=== PATIENT | female | born 1960 | race Caucasian/White ===

== ENCOUNTER → 2018-11-29 09:21 | Oncology outpatient (ONC) | payer OTHER, SELFPAY ==
[2018-11-29 09:54] VITALS: BP 139/83; PULSE 83; RESP 18; TEMP 36.3; O2SAT 98
--- NOTE | 2018-11-29 12:51 | P.CONONC_ITS ---
History of Present Illness - Data of Consult Consult date: 11/29/18 Primary Care Provider: Lauren King PA-C - Consult Narrative Narrative: Diagnosis: Lobular cancer of the left breast, ER/GA positive, HER2 negative clinically T1cN0 History of present illness: Isabel Russell is a 58 year old female who is referred for further evaluation of a newly diagnosed breast cancer. The patient reports that she felt a lump in the lateral left breast. It was present about 2-3 months ago. It was not painful or bothering her. She sought medical attention and was referred for a mammogram and ultrasound. These confirmed an abnormality in the lateral left breast that measured approximately 1.3 cm. There was no evidence of adenopathy. ultrasound-guided biopsy confirmed an infiltrating lobular carcinoma that was ER and GA positive and HER2 negative. She is scheduled to meet with a surgeon on Tuesday afternoon. Today, she is somewhat anxious but otherwise feeling well. She has had some chronic neck and shoulder pain which has been stable. She denies any new aches or pains. No fevers chills or sweats. No shortness of breath or cough. Appetite and energy level have been stable. She is otherwise without complaint. Her medications include only hydrochlorothiazide and alprazolam. Her past medical history is notable for high blood pressure and arthritis. She has had spinal stenosis in her neck. She has had wrist surgery for hemangiomas. She had a prior tonsillectomy. She also has a history of a kidney infection. Her family history is notable for a brother with Hodgkin's disease. Her father had kidney and prostate cancer. She believes that there may be some breast cancer mother side of the family although she is not sure of the details. Social history: She is . She is active in [employer]. She quit smoking several years ago. She has very rare alcohol use. CC: Fabian Stringer MD Home Medications and Allergies Home Medications Medication Instructions Recorded Confirmed Type ALPRAZOLAM 0.5 mg PO PRN #0 07/16/10 11/29/18 History hydrochlorothiazide 25 mg PO DAILY 11/29/18 11/29/18 History Allergies Allergy/AdvReac Type Severity Reaction Status Date / Time lisinopril Allergy Severe COUGH/THROAT Unverified 11/23/17 13:03 TIGHTENING Penicillins Allergy Mild Unverified 11/23/17 13:03 Sulfa (Sulfonamide Allergy Mild Unverified 11/23/17 13:03 Antibiotics) morphine Allergy Unknown Unverified 11/23/17 13:03 tetanus toxoid, adsorbed Allergy Unknown Unverified 11/23/17 13:03 adhesive tape AdvReac Severe Hives Verified 11/29/18 10:04 topiramate AdvReac Severe SUICIDAL Unverified 11/23/17 13:03 codeine AdvReac Intermediate PSYCHOTIC Unverified 11/23/17 13:03 erythromycin base AdvReac Intermediate ABD PAIN, Unverified 11/23/17 13:03 DIARRHEA nadolol AdvReac Mild BRADYCARDIA Unverified 11/23/17 13:03 nortriptyline AdvReac Mild TACHYCARDIA Unverified 11/23/17 13:03 adhesive AdvReac Hives Verified 11/29/18 10:04 Review of Systems - Patient Self-Reported Symptoms SR Constitution: Weight loss/gain SR ears, nose, mouth, throat issues: Ears ringing SR respiratory issues: Mucous SR Cardiovascular issues: Dizzy/lightheaded SR Skin issues: Skin rash or itching, Nail changes SR Genitourinary issues: Frequent urination SR Musculoskeletal issues: Muscle weakness, Back or neck pain SR Neuro issues: Headache, Lightheaded/dizzy, Difficulty balancing Constitutional: normal activity level Respiratory: no shortness of breath, no cough Musculoskeletal: pain Integumentary (breast): lumps Exam Vital signs: Vital Signs Temp Pulse Resp BP Pulse Ox 11/29/18 09:54 97.4 F L 83 18 139/83 98 Intake and Output 11/28/18 11/29/18 11/29/18 23:59 07:59 15:59 Other: Weight 76.8 kg Patient Weight 11/29/18 23:59 Weight 76.8 kg - Constitutional positive no acute distress, positive average body habitus - Routine HEENT Exam Head: Present: normocephalic, atraumatic Eye: Present: EOMI, PERRL. Absent: conjunctival icterus, scleral injection ENT: Present: mucous membranes moist, oropharynx clear - Routine Neck Exam Present: supple. Absent: lymphadenopathy, thyromegaly - Routine Chest/Breast/Axilla Exam Comments: She has some ecchymosis over the lateral left breast and a healing biopsy site. There is a small nodule in that area. I am unsure if it is the mass or hematoma. I do not feel any axillary adenopathy. I do not feel any other suspicious masses. - Routine Respiratory Exam Present: Clear to auscultation bilaterally. Absent: rales, wheezes - Routine Cardiovascular Exam Present: RRR, S1, S2. Absent: murmur - Routine Abdominal Exam Present: soft, normoactive bowel sounds. Absent: tenderness, organomegaly, mass - Routine Extremities Exam Absent: cyanosis, clubbing, edema - Routine Back/Spine Exam Back/Spine: Absent: paraspinal tenderness, vertebral tenderness - Routine Skin Exam Present: intact. Absent: petechiae, rash - Routine Neurological Exam Present: alert, oriented X3 - Routine Psychiatric Exam Present: normal affect, normal thought process Assessment and Plan (1) Breast cancer Current visit: Yes Status: Acute 58-year-old woman with a new diagnosis of lobular breast cancer. Clinically, it appears to be stage I. She does not have any symptoms to suggest distant metastasis. I explained that the mainstay of treatment was surgical. This could include lumpectomy followed by radiation or mastectomy with equivalent long-term outcome. Given the small size of her cancer and lobular pathology, I doubt that there will be any role for chemotherapy although she would benefit from hormone therapy. If she were found to have lymph node involvement or for tumor was larger than suspected, then we may need to reconsider chemotherapy. We did discuss the role of hormone therapy in reducing both local and distant recurrence as well as development of 2nd primaries. We talked about side effects of aromatase inhibitor including hot flashes, irritability and mood changes, risk for osteoporosis and risk for musculoskeletal complications. We talked briefly about tamoxifen and its side effects including the risk for thrombosis and abnormal uterine bleeding. The patient will meet with the surgeon later this week. She will return to clinic here in about 6 weeks for follow-up. Hopefully by that time she will have completed her surgical treatment and be recovering.
--- NOTE | 2018-12-05 11:45 | ONC.SCHED ---
Patient going to [facility] for [facility] opinion. [facility] record request send to Medical Records
--- NOTE | 2018-12-21 08:20 | ONC.SCHED ---
Per phone message from patient today, transferring care to [facility]
== END ==
PROVIDERS: Family Provider Physician Assistant; PCP Physician Assistant
DX: C50.912 Malignant neoplasm of unspecified site of left female breast (principal); I10 Essential (primary) hypertension; Z17.0 Estrogen receptor positive status [ER+]; Z87.891 Personal history of nicotine dependence
CPT/HCPCS: 99204; 99214

== ENCOUNTER → 2018-12-15 11:07 | Outpatient (CLI) | payer OTHER, SELFPAY ==
--- NOTE | 2018-12-15 | DI.US.S_ITS ---
PROCEDURE: US PELVIC COMPLETE INDICATIONS: POSTMENOPAUSAL BLEEDING TECHNIQUE: Real-time scanning was performed of the pelvic organs, with image documentation. Additional endovaginal scanning was necessary due to incomplete visualization of the adnexal and endometrial structures by transabdominal scanning. COMPARISON: [facility], , PELVIC COMPLETE, 09/01/2015, 14:19. FINDINGS: Transabdominal scanning: Limited scanning through the kidneys shows no hydronephrosis. No pathologic free abdominal or pelvic fluid. Endovaginal scanning: Uterus: Uterus is normal in size at 7.2 x 3.2 x 4.8 cm. The endometrium measures 1.2 mm in combined thickness. 1.5 x 1.0 1.1 cm posterior intramural fibroid. Ovaries: Ovaries are normal bilaterally measuring 1.8 x 0.9 x 1.1 cm on the right and 2.3 x 1.3 x 1.4 cm on the left. IMPRESSION: 15 mm intramural fibroid. Dictated by: Wilton NICHOLSON Interpreted: Casi Yung MD on 12/15/2018 at 15:56 Approved by: Casi Yung M.D. on 12/18/2018 at 17:31
== END ==
PROVIDERS: Family Provider Physician Assistant; PCP Physician Assistant; Visit Provider Physician Assistant
DX: N95.0 Postmenopausal bleeding (principal); D25.1 Intramural leiomyoma of uterus
CPT/HCPCS: 76830; 76856

== ENCOUNTER 2021-11-27 11:15 | Outpatient (RCR) | payer OTHER, SELFPAY ==
--- NOTE | 2021-05-07 15:59 | PT.OIE ---
Current Diagnoses Benign paroxysmal vertigo, bilateral (05/07/21) Dizziness and giddiness (05/07/21) Visit Care Team Role Provider Type Lauren King PA-C Attending Provider Non-Staff Primary Care Provider Referring Provider Specialty: Internal Medicine Address: [address] [place] [address], [id number] Email: Physical Therapy Initial Evaluation PT-OP-A Visit Information Start: 05/07/21 15:36 Freq: Status: Active Protocol: Document 05/07/21 12:00 DCW (Rec: 05/07/21 15:58 [facility] [id number]) Out-Patient Physical Therapy Visit Information Visit Information Visit Type Initial Evaluation Visit Start Time 12:00 Visit Stop Time 12:50 Total Visit Minutes 50 Visit Number 1 Number of INSIDE TRUCKER Visits 0 Evaluation Information Evaluation Date 05/07/21 PT-OP-B Current Condition Start: 05/07/21 15:36 Freq: Status: Active Protocol: Document 05/07/21 12:00 DCW (Rec: 05/07/21 15:58 DC [id number]) Current Condition History of Current Condition Onset Date 04/25/21 Current Complaints Position-dependent vertigo History of Current Condition Pt is a 61 year old female complaining of a two week history of motion-induced vertigo. Pt reports episodes last a minute or two. Symptoms are provoked by bending down, looking down and to the side, looking up, and changing positions in bed. Pt does repot a few instances when she thinks she was simply standing and got an overwhelming sensation like she was shoved to the side, and ended up falling against the wall. Pt reports symptoms are not waxing/waning in nature. Pt does have a current history of left breast cancer , for which she has recently undergone treatment. Admits to fairly significant stress levels recently, between her cancer treatment, her grandson being born 8 weeks early, and her same grandson undergoing open heart surgery just last week. Prior Treatments and Tests Pt has a history of an as yet undetermined balance disorder which she was seen at this clinic for a number of years ago. Pt was doing well enough that she could function, was having tests run to figure out what was happening, and admits she finally just said that's enough, no one knows what's happening, so I'm just not going to worry about it and live my life. Treatment Goals Patient/Caregiver Goals Stop dizziness/falls Personal Factors Other Personal Factors That May Effect Breast cancer, Hx unknown Therapy/Recovery balance disorder PT-OP-C Subjective Start: 05/07/21 15:36 Freq: Status: Active Protocol: Document 05/07/21 12:00 DCW (Rec: 05/07/21 15:58 [facility] [id number]) OP-PT Subjective Patient Comments Patient Comments I'm normally fine when I'm standing, but I'm still afraid to drive. What happens if I get really dizzy when I'm driving? Patient Questionnaires Dizziness Handicap Inventory DHI Score 46% DHI Functional Impairment 40 to 59% Impaired (Score 40- 59) PT-OP-O Vestibular Start: 05/07/21 15:36 Freq: Status: Active Protocol: Document 05/07/21 12:00 DCW (Rec: 05/07/21 15:58 [facility] [id number]) Vestibular Assessment Screening Tests Vestibular Artery Screen Negative Auditory Tests Montalvo Test Within normal limits Rinne Test Negative Air Conduction Results Equal Visual Testing Smooth Pursuits Horizontal WNL Smooth Pursuits Vertical WNL Saccades Horizontal WNL Saccades Vertical WNL Gaze Evoked Nystagmus With Fixation Negative Gaze Evoked Nystagmus Without Fixation Negative Positional Testing Loren-Hallpike Positive Left,Negative Right, Upbeating,> 60 Seconds PT-OP-Q Treatments Start: 05/07/21 15:36 Freq: Status: Active Protocol: Document 05/07/21 12:00 DCW (Rec: 05/07/21 15:58 [facility] [id number]) Canalithic Repositioning BPPV Treatment Semont Affected Canal(s) L Posterior? Reps x1 Rodrigo Affected Canal(s) L Posterior? Reps x1 Comments Modified Rodrigo PT-OP-T Assessment and Plan Start: 05/07/21 15:36 Freq: Status: Active Protocol: Document 05/07/21 12:00 DCW (Rec: 05/07/21 15:58 [facility] [id number]) Physical Therapy Assessment Rehab Potential Rehabilitation Potential Good Evaluation Complexity Number of Personal Factors/Comorbidities 3 or More Number of Body Systems Impaired 3 Clinical Presentation at Evaluation Unstable Impairments Impairments Balance,Functional Activities, Functional Mobility,Vestibular Assessment Summary Assessment During left Chapman-Hallpike test, pt complained of vertigo and demonstrated torsional nystagmus lasting 60+ seconds, which may be consistent with diagnosis of left-sided posterior canal BPPV, cupulolithiasis-type. Very difficult to see if there was subtle upbeating, or if pt was actually demonstrating pure torsional nystagmus, which may be a sign of a central cause. Pt had no other central symptoms, and otherwise responded as expected to treatment. A modified Rodrigo was performed, just because she was already in position, however upon retesting, she continued to have sustained nystagmus, and a left semont/ libertory maneuver was performed. Pt noted almost immediate improvement in symptoms. Pt should be seen for a follow-up within the next week. If pt responded appropriately to canalith repositioning, she will likely be appropriate for discharge. If symptoms persist, further testing may be required, and, due to pt's current health history, may require further screening for potential central cause. Pt was educated on BPPV, expectations for treatment, and post-Rodrigo restrictions. Pt to return in ~1 week for a follow-up appointment, and intermittently afterward as indicated for treatment of BPPV. Physical Therapy Plan Frequency and Duration Frequency of Treatment 2x/Week Duration of Treatment One month Plan of Care Start Date 05/07/21 Plan of Care End Date 06/06/21 Therapeutic Interventions Therapeutic Interventions Balance Training,Canalithic Repositioning,Manual Therapy, Neuromuscular Re-education, Therapeutic Activities, Therapeutic Exercises, Vestibular Rehabilitation Next Visit Focus/Plan Next Note Type Treatment Note Next Visit Plan Positional testing, CRM as indicated, vestibular testing
--- NOTE | 2021-05-07 16:00 | PT.OPPOC ---
Physical, Occupational & Speech Therapy At [facility] Current Diagnoses Benign paroxysmal vertigo, bilateral (05/07/21) Dizziness and giddiness (05/07/21) Visit Care Team Role Provider Type Lauren King PA-C Attending Provider Non-Staff Primary Care Provider Referring Provider Specialty: Internal Medicine Address: [address] [place] [address], [id number] Email: Plan Of Care PT-OP-T Assessment and Plan Start: 05/07/21 15:36 Freq: Status: Active Protocol: Document 05/07/21 12:00 DCW (Rec: 05/07/21 15:58 DCW [id number]) Physical Therapy Assessment Rehab Potential Rehabilitation Potential Good Evaluation Complexity Number of Personal Factors/Comorbidities 3 or More Number of Body Systems Impaired 3 Clinical Presentation at Evaluation Unstable Impairments Impairments Balance,Functional Activities, Functional Mobility,Vestibular Assessment Summary Assessment During left Loren-Hallpike test, pt complained of vertigo and demonstrated torsional nystagmus lasting 60+ seconds, which may be consistent with diagnosis of left-sided posterior canal BPPV, cupulolithiasis-type. Very difficult to see if there was subtle upbeating, or if pt was actually demonstrating pure torsional nystagmus, which may be a sign of a central cause. Pt had no other central symptoms, and otherwise responded as expected to treatment. A modified Rodrigo was performed, just because she was already in position, however upon retesting, she continued to have sustained nystagmus, and a left semont/ libertory maneuver was performed. Pt noted almost immediate improvement in symptoms. Pt should be seen for a follow-up within the next week. If pt responded appropriately to canalith repositioning, she will likely be appropriate for discharge. If symptoms persist, further testing may be required, and, due to pt's current health history, may require further screening for potential central cause. Pt was educated on BPPV, expectations for treatment, and post-Rodrigo restrictions. Pt to return in ~1 week for a follow-up appointment, and intermittently afterward as indicated for treatment of BPPV. Physical Therapy Plan Frequency and Duration Frequency of Treatment 2x/Week Duration of Treatment One month Plan of Care Start Date 05/07/21 Plan of Care End Date 06/06/21 Therapeutic Interventions Therapeutic Interventions Balance Training,Canalithic Repositioning,Manual Therapy, Neuromuscular Re-education, Therapeutic Activities, Therapeutic Exercises, Vestibular Rehabilitation Next Visit Focus/Plan Next Note Type Treatment Note Next Visit Plan Positional testing, CRM as indicated, vestibular testing Plan of Care Dates Plan of Care Start Date 05/07/21 Plan of Care End Date 06/06/21 Electronically Signed by: Gabe Wadsworth, PT 05/07/21 1600 Please Sign and Return: I have reviewed this Plan of Care and certify that the skilled therapy services above are required to meet the patient?s needs. Physician Signature Date Printed Name and Credentials Clinical Instructor Signature Printed Name and Credentials
--- NOTE | 2021-05-14 16:02 | PT.OTN ---
Current Diagnoses Benign paroxysmal vertigo, bilateral (05/14/21) Dizziness and giddiness (05/14/21) Physical Therapy Treatment Note PT-OP-A Visit Information Start: 05/07/21 15:36 Freq: Status: Active Protocol: Document 05/14/21 15:18 DCW (Rec: 05/14/21 16:02 DCW [id number]) Out-Patient Physical Therapy Visit Information Visit Information Visit Type Treatment Note Visit Start Time 15:15 Visit Stop Time 16:00 Total Visit Minutes 45 Visit Number 2 Number of RIDING SILKS CUSTODIAN Visits 0 Evaluation Information Evaluation Date 05/07/21 PT-OP-B Current Condition Start: 05/07/21 15:36 Freq: Status: Active Protocol: Document 05/07/21 12:00 DCW (Rec: 05/07/21 15:58 DCW [id number]) Current Condition History of Current Condition Onset Date 04/25/21 Current Complaints Position-dependent vertigo History of Current Condition Pt is a 61 year old female complaining of a two week history of motion-induced vertigo. Pt reports episodes last a minute or two. Symptoms are provoked by bending down, looking down and to the side, looking up, and changing positions in bed. Pt does repot a few instances when she thinks she was simply standing and got an overwhelming sensation like she was shoved to the side, and ended up falling against the wall. Pt reports symptoms are not waxing/waning in nature. Pt does have a current history of left breast cancer , for which she has recently undergone treatment. Admits to fairly significant stress levels recently, between her cancer treatment, her grandson being born 8 weeks early, and her same grandson undergoing open heart surgery just last week. Prior Treatments and Tests Pt has a history of an as yet undetermined balance disorder which she was seen at this clinic for a number of years ago. Pt was doing well enough that she could function, was having tests run to figure out what was happening, and admits she finally just said that's enough, no one knows what's happening, so I'm just not going to worry about it and live my life. Treatment Goals Patient/Caregiver Goals Stop dizziness/falls Personal Factors Other Personal Factors That May Effect Breast cancer, Hx unknown Therapy/Recovery balance disorder PT-OP-C Subjective Start: 05/07/21 15:36 Freq: Status: Active Protocol: Document 05/14/21 15:18 DCW (Rec: 05/14/21 16:01 DCW [id number]) OP-PT Subjective Patient Comments Patient Comments Pt reports she was doing better for a few days, but then is now symptomatic again when standing up after bending over to interact with her dog or turning too quickly in the kitchen. PT-OP-O Vestibular Start: 05/07/21 15:36 Freq: Status: Active Protocol: Document 05/14/21 15:18 DCW (Rec: 05/14/21 16:01 DCW [id number]) Vestibular Assessment Positional Testing Davenport-Hallpike Positive Left,Negative Right, Upbeating,> 60 Seconds PT-OP-Q Treatments Start: 05/07/21 15:36 Freq: Status: Active Protocol: Document 05/14/21 15:18 DCW (Rec: 05/14/21 16:01 DCW [id number]) Canalithic Repositioning BPPV Treatment Semont Affected Canal(s) L Posterior? Reps x2 PT-OP-T Assessment and Plan Start: 05/07/21 15:36 Freq: Status: Active Protocol: Document 05/14/21 15:18 DCW (Rec: 05/14/21 16:01 DCW [id number]) Physical Therapy Assessment Impairments Impairments Balance,Functional Activities, Functional Mobility,Vestibular Assessment Summary Assessment Pt's symptoms similar today, sustained nystagmus in left Loren-Hallpike position, still very difficult to determine if there is a vertical component to her nystagmus, or pure torsional. Pt discussed today fears regarding potential of brain mets, which can present with unusual nystagmus. Physical Therapy Plan Frequency and Duration Frequency of Treatment 2x/Week Duration of Treatment One month Plan of Care Start Date 05/07/21 Plan of Care End Date 06/06/21 Therapeutic Interventions Therapeutic Interventions Balance Training,Canalithic Repositioning,Manual Therapy, Neuromuscular Re-education, Therapeutic Activities, Therapeutic Exercises, Vestibular Rehabilitation Next Visit Focus/Plan Next Note Type Treatment Note Next Visit Plan Positional testing, CRM as indicated, vestibular testing
--- NOTE | 2021-05-29 12:48 | PT.OTN ---
Current Diagnoses Benign paroxysmal vertigo, bilateral (05/29/21) Dizziness and giddiness (05/29/21) Physical Therapy Treatment Note PT-OP-A Visit Information Start: 05/07/21 15:36 Freq: Status: Active Protocol: Document 05/29/21 12:02 DCW (Rec: 05/29/21 12:48 DCW [id number]) Out-Patient Physical Therapy Visit Information Visit Information Visit Type Treatment Note Visit Start Time 12:02 Visit Stop Time 12:45 Total Visit Minutes 43 Visit Number 3 Number of GUM MIXER Visits 0 Evaluation Information Evaluation Date 05/07/21 PT-OP-B Current Condition Start: 05/07/21 15:36 Freq: Status: Active Protocol: Document 05/07/21 12:00 DCW (Rec: 05/07/21 15:58 DCW [id number]) Current Condition History of Current Condition Onset Date 04/25/21 Current Complaints Position-dependent vertigo History of Current Condition Pt is a 61 year old female complaining of a two week history of motion-induced vertigo. Pt reports episodes last a minute or two. Symptoms are provoked by bending down, looking down and to the side, looking up, and changing positions in bed. Pt does repot a few instances when she thinks she was simply standing and got an overwhelming sensation like she was shoved to the side, and ended up falling against the wall. Pt reports symptoms are not waxing/waning in nature. Pt does have a current history of left breast cancer , for which she has recently undergone treatment. Admits to fairly significant stress levels recently, between her cancer treatment, her grandson being born 8 weeks early, and her same grandson undergoing open heart surgery just last week. Prior Treatments and Tests Pt has a history of an as yet undetermined balance disorder which she was seen at this clinic for a number of years ago. Pt was doing well enough that she could function, was having tests run to figure out what was happening, and admits she finally just said that's enough, no one knows what's happening, so I'm just not going to worry about it and live my life. Treatment Goals Patient/Caregiver Goals Stop dizziness/falls Personal Factors Other Personal Factors That May Effect Breast cancer, Hx unknown Therapy/Recovery balance disorder PT-OP-C Subjective Start: 05/07/21 15:36 Freq: Status: Active Protocol: Document 05/29/21 12:02 DCW (Rec: 05/29/21 12:47 DCW [id number]) OP-PT Subjective Patient Comments Patient Comments For a week or so it was really good, and I saw my chiropractor twice in that time, and he reset my C1 on both sides, so that may have helped, but last night after I got home, I was sitting on the couch and just got real woozy, and it passed, but just all night it seemed to come and go. PT-OP-O Vestibular Start: 05/07/21 15:36 Freq: Status: Active Protocol: Document 05/29/21 12:02 DCW (Rec: 05/29/21 12:47 DCW [id number]) Vestibular Assessment Positional Testing [place]-Hallpike Positive Left,Negative Right, Upbeating,> 60 Seconds PT-OP-Q Treatments Start: 05/07/21 15:36 Freq: Status: Active Protocol: Document 05/29/21 12:02 DCW (Rec: 05/29/21 12:47 DCW [id number]) Manual Therapy Treatment Soft Tissue Mobilization 1 Body Location B Upper Trap Mobilization Type Strumming,Sustained Pressure Intensity/Depth Moderate Body Position Supine Other Other Manual Treatments Positional testing Canalithic Repositioning BPPV Treatment Rodrigo Affected Canal(s) L Posterior? Reps x1 Comments Modified Rodrigo PT-OP-T Assessment and Plan Start: 05/07/21 15:36 Freq: Status: Active Protocol: Document 05/29/21 12:02 DCW (Rec: 05/29/21 12:47 DCW [id number]) Physical Therapy Assessment Impairments Impairments Balance,Functional Activities, Functional Mobility,Vestibular Assessment Summary Assessment Pt still presenting with atypical sustained nystagmus on the left, although does appear to be less severe today . Started to include some cervical STM to assess improvement, may be sign of cervicogenic vertigo. Physical Therapy Plan Frequency and Duration Frequency of Treatment 2x/Week Duration of Treatment One month Plan of Care Start Date 05/07/21 Plan of Care End Date 06/06/21 Therapeutic Interventions Therapeutic Interventions Balance Training,Canalithic Repositioning,Manual Therapy, Neuromuscular Re-education, Therapeutic Activities, Therapeutic Exercises, Vestibular Rehabilitation Next Visit Focus/Plan Next Note Type Treatment Note Next Visit Plan Positional testing, CRM as indicated, vestibular testing
--- NOTE | 2021-06-05 12:02 | PT.OTN ---
Current Diagnoses Benign paroxysmal vertigo, bilateral (06/05/21) Dizziness and giddiness (06/05/21) Physical Therapy Treatment Note PT-OP-A Visit Information Start: 05/07/21 15:36 Freq: Status: Active Protocol: Document 06/05/21 11:15 DCW (Rec: 06/05/21 12:01 DCW [id number]) Out-Patient Physical Therapy Visit Information Visit Information Visit Type Treatment Note Visit Start Time 11:15 Visit Stop Time 12:00 Total Visit Minutes 45 Visit Number 4 Number of GRINDING AND SPRAYING SUPERVISOR Visits 0 Evaluation Information Evaluation Date 05/07/21 PT-OP-B Current Condition Start: 05/07/21 15:36 Freq: Status: Active Protocol: Document 05/07/21 12:00 DCW (Rec: 05/07/21 15:58 DCW [id number]) Current Condition History of Current Condition Onset Date 04/25/21 Current Complaints Position-dependent vertigo History of Current Condition Pt is a 61 year old female complaining of a two week history of motion-induced vertigo. Pt reports episodes last a minute or two. Symptoms are provoked by bending down, looking down and to the side, looking up, and changing positions in bed. Pt does repot a few instances when she thinks she was simply standing and got an overwhelming sensation like she was shoved to the side, and ended up falling against the wall. Pt reports symptoms are not waxing/waning in nature. Pt does have a current history of left breast cancer , for which she has recently undergone treatment. Admits to fairly significant stress levels recently, between her cancer treatment, her grandson being born 8 weeks early, and her same grandson undergoing open heart surgery just last week. Prior Treatments and Tests Pt has a history of an as yet undetermined balance disorder which she was seen at this clinic for a number of years ago. Pt was doing well enough that she could function, was having tests run to figure out what was happening, and admits she finally just said that's enough, no one knows what's happening, so I'm just not going to worry about it and live my life. Treatment Goals Patient/Caregiver Goals Stop dizziness/falls Personal Factors Other Personal Factors That May Effect Breast cancer, Hx unknown Therapy/Recovery balance disorder PT-OP-C Subjective Start: 05/07/21 15:36 Freq: Status: Active Protocol: Document 06/05/21 11:15 DCW (Rec: 06/05/21 12:01 DCW [id number]) OP-PT Subjective Patient Comments Patient Comments More of the same, maybe a little better. I have stretches where it feels pretty good, and then occasionally days where I'm more symptomatic. I am noticing that my neck pain does seem to be associated with how back my symptoms are. PT-OP-O Vestibular Start: 05/07/21 15:36 Freq: Status: Active Protocol: Document 05/29/21 12:02 DCW (Rec: 05/29/21 12:47 DCW [id number]) Vestibular Assessment Positional Testing [place]-Hallpike Positive Left,Negative Right, Upbeating,> 60 Seconds PT-OP-Q Treatments Start: 05/07/21 15:36 Freq: Status: Active Protocol: Document 06/05/21 11:15 DCW (Rec: 06/05/21 12:01 DCW [id number]) Manual Therapy Treatment Soft Tissue Mobilization 1 Body Location B Upper Trap, scalenes, SCM, suboccipitals Mobilization Type Strumming,Sustained Pressure Intensity/Depth Moderate Body Position Supine PT-OP-T Assessment and Plan Start: 05/07/21 15:36 Freq: Status: Active Protocol: Document 06/05/21 11:15 DCW (Rec: 06/05/21 12:01 DCW [id number]) Physical Therapy Assessment Impairments Impairments Balance,Functional Activities, Functional Mobility,Vestibular Assessment Summary Assessment Focus on STM to cervical spine today to determine if symptoms are related to cervicogenic dizziness, pt instructed to track symptoms after today's visit. Physical Therapy Plan Frequency and Duration Frequency of Treatment 2x/Week Duration of Treatment One month Plan of Care Start Date 05/07/21 Plan of Care End Date 06/06/21 Therapeutic Interventions Therapeutic Interventions Balance Training,Canalithic Repositioning,Manual Therapy, Neuromuscular Re-education, Therapeutic Activities, Therapeutic Exercises, Vestibular Rehabilitation Next Visit Focus/Plan Next Note Type Treatment Note Next Visit Plan Positional testing, CRM as indicated, vestibular testing
--- NOTE | 2021-06-12 12:49 | PT.OTN ---
Current Diagnoses Benign paroxysmal vertigo, bilateral (06/12/21) Dizziness and giddiness (06/12/21) Physical Therapy Treatment Note PT-OP-A Visit Information Start: 05/07/21 15:36 Freq: Status: Active Protocol: Document 06/12/21 11:15 DCW (Rec: 06/12/21 12:03 DCW [id number]) Out-Patient Physical Therapy Visit Information Visit Information Visit Type Treatment Note Visit Start Time 11:15 Visit Stop Time 12:00 Total Visit Minutes 45 Visit Number 5 Number of PRODUCTION TECH Visits 0 Evaluation Information Evaluation Date 05/07/21 PT-OP-B Current Condition Start: 05/07/21 15:36 Freq: Status: Active Protocol: Document 05/07/21 12:00 DCW (Rec: 05/07/21 15:58 DCW [id number]) Current Condition History of Current Condition Onset Date 04/25/21 Current Complaints Position-dependent vertigo History of Current Condition Pt is a 61 year old female complaining of a two week history of motion-induced vertigo. Pt reports episodes last a minute or two. Symptoms are provoked by bending down, looking down and to the side, looking up, and changing positions in bed. Pt does repot a few instances when she thinks she was simply standing and got an overwhelming sensation like she was shoved to the side, and ended up falling against the wall. Pt reports symptoms are not waxing/waning in nature. Pt does have a current history of left breast cancer , for which she has recently undergone treatment. Admits to fairly significant stress levels recently, between her cancer treatment, her grandson being born 8 weeks early, and her same grandson undergoing open heart surgery just last week. Prior Treatments and Tests Pt has a history of an as yet undetermined balance disorder which she was seen at this clinic for a number of years ago. Pt was doing well enough that she could function, was having tests run to figure out what was happening, and admits she finally just said that's enough, no one knows what's happening, so I'm just not going to worry about it and live my life. Treatment Goals Patient/Caregiver Goals Stop dizziness/falls Personal Factors Other Personal Factors That May Effect Breast cancer, Hx unknown Therapy/Recovery balance disorder PT-OP-C Subjective Start: 05/07/21 15:36 Freq: Status: Active Protocol: Document 06/12/21 11:15 DCW (Rec: 06/12/21 12:03 DCW [id number]) OP-PT Subjective Patient Comments Patient Comments Admits she feels a little off today following an infusion yesterday. Notes she has noticed a marked improvement since starting to focus on her cervical muscles. PT-OP-F Manual Assessment Start: 06/12/21 12:47 Freq: Status: Active Protocol: Document 06/12/21 11:15 DCW (Rec: 06/12/21 12:48 DCW [id number]) Manual Assessments Soft Tissue Assessment Soft Tissue Mobility Assessment Moderate tone with tenderness to palpation 3/4: wincing and withdraw along upper trap, cervical paraspinals, and scalenes, R>L. PT-OP-O Vestibular Start: 05/07/21 15:36 Freq: Status: Active Protocol: Document 06/12/21 11:15 DCW (Rec: 06/12/21 12:48 DCW [id number]) Vestibular Assessment Positional Testing [place]-Hallpike Positive Left,Negative Right, Upbeating,> 60 Seconds PT-OP-Q Treatments Start: 05/07/21 15:36 Freq: Status: Active Protocol: Document 06/12/21 11:15 DCW (Rec: 06/12/21 12:03 DCW [id number]) Manual Therapy Treatment Soft Tissue Mobilization 1 Body Location B Upper Trap, scalenes, SCM, suboccipitals Mobilization Type Strumming,Sustained Pressure Intensity/Depth Moderate Body Position Supine PT-OP-T Assessment and Plan Start: 05/07/21 15:36 Freq: Status: Active Protocol: Document 06/12/21 11:15 DCW (Rec: 06/12/21 12:03 DCW [id number]) Physical Therapy Assessment Impairments Impairments Balance,Functional Activities, Functional Mobility,Vestibular Goals Two Impairment Moderate R-sided cervical tone restricts ROM Corporate Administrative Assistant Goal (LTG) Pt to improve cervical ROM to normal levels to decrease symptoms of cervicogenic dizziness. LTG Duration 08/12/21 One Impairment Pt does not have an appropriate home exercise program Short Term Goal (STG) Pt to be independent and compliant with an appropriate HEP STG Duration 07/13/21 Assessment Summary Assessment Continues to show improvement with tone levels and mobility. Noting improvement with symptoms with recent focus on cervical ROM. Continued PT to focus on cervical pain and ROM in effort to decrease vertiginous symptoms. Physical Therapy Plan Frequency and Duration Frequency of Treatment 2x/Week Duration of Treatment Two month Plan of Care Start Date 06/12/21 Plan of Care End Date 08/12/21 Therapeutic Interventions Therapeutic Interventions Balance Training,Canalithic Repositioning,Manual Therapy, Neuromuscular Re-education, Therapeutic Activities, Therapeutic Exercises, Vestibular Rehabilitation Next Visit Focus/Plan Next Note Type Treatment Note Next Visit Plan Positional testing, CRM as indicated, vestibular testing
--- NOTE | 2021-06-12 12:49 | PT.OPPOC ---
Physical, Occupational & Speech Therapy At [facility] Current Diagnoses Benign paroxysmal vertigo, bilateral (06/12/21) Dizziness and giddiness (06/12/21) Visit Care Team Role Provider Type Lauren King PA-C Attending Provider Non-Staff Primary Care Provider Referring Provider Specialty: Internal Medicine Address: [address] [place] [address], [place], [address] Email: Plan Of Care PT-OP-T Assessment and Plan Start: 05/07/21 15:36 Freq: Status: Active Protocol: Document 06/12/21 11:15 DCW (Rec: 06/12/21 12:03 DCW [id number]) Physical Therapy Assessment Impairments Impairments Balance,Functional Activities, Functional Mobility,Vestibular Goals Two Impairment Moderate R-sided cervical tone restricts ROM Mailing Machine Operator Goal (LTG) Pt to improve cervical ROM to normal levels to decrease symptoms of cervicogenic dizziness. LTG Duration 08/12/21 One Impairment Pt does not have an appropriate home exercise program Short Term Goal (STG) Pt to be independent and compliant with an appropriate HEP STG Duration 07/13/21 Assessment Summary Assessment Continues to show improvement with tone levels and mobility. Noting improvement with symptoms with recent focus on cervical ROM. Continued PT to focus on cervical pain and ROM in effort to decrease vertiginous symptoms. Physical Therapy Plan Frequency and Duration Frequency of Treatment 2x/Week Duration of Treatment Two month Plan of Care Start Date 06/12/21 Plan of Care End Date 08/12/21 Therapeutic Interventions Therapeutic Interventions Balance Training,Canalithic Repositioning,Manual Therapy, Neuromuscular Re-education, Therapeutic Activities, Therapeutic Exercises, Vestibular Rehabilitation Next Visit Focus/Plan Next Note Type Treatment Note Next Visit Plan Positional testing, CRM as indicated, vestibular testing Plan of Care Dates Plan of Care Start Date 06/12/21 Plan of Care End Date 08/12/21 Electronically Signed by: Gabe Wadsworth, PT 06/12/21 [id number] Please Sign and Return: I have reviewed this Plan of Care and certify that the skilled therapy services above are required to meet the patient?s needs. Physician Signature Date Printed Name and Credentials Clinical Instructor Signature Printed Name and Credentials
--- NOTE | 2021-06-26 16:48 | PT.OTN ---
Current Diagnoses Benign paroxysmal vertigo, bilateral (06/26/21) Physical Therapy Treatment Note PT-OP-A Visit Information Start: 05/07/21 15:36 Freq: Status: Active Protocol: Document 06/26/21 16:00 DCW (Rec: 06/26/21 16:46 DCW [id number]) Out-Patient Physical Therapy Visit Information Visit Information Visit Type Treatment Note Visit Start Time 16:00 Visit Stop Time 16:45 Total Visit Minutes 45 Visit Number 6 Number of MEDICAL AUDITOR Visits 0 Evaluation Information Evaluation Date 05/07/21 PT-OP-B Current Condition Start: 05/07/21 15:36 Freq: Status: Active Protocol: Document 05/07/21 12:00 DCW (Rec: 05/07/21 15:58 DCW [id number]) Current Condition History of Current Condition Onset Date 04/25/21 Current Complaints Position-dependent vertigo History of Current Condition Pt is a 61 year old female complaining of a two week history of motion-induced vertigo. Pt reports episodes last a minute or two. Symptoms are provoked by bending down, looking down and to the side, looking up, and changing positions in bed. Pt does repot a few instances when she thinks she was simply standing and got an overwhelming sensation like she was shoved to the side, and ended up falling against the wall. Pt reports symptoms are not waxing/waning in nature. Pt does have a current history of left breast cancer , for which she has recently undergone treatment. Admits to fairly significant stress levels recently, between her cancer treatment, her grandson being born 8 weeks early, and her same grandson undergoing open heart surgery just last week. Prior Treatments and Tests Pt has a history of an as yet undetermined balance disorder which she was seen at this clinic for a number of years ago. Pt was doing well enough that she could function, was having tests run to figure out what was happening, and admits she finally just said that's enough, no one knows what's happening, so I'm just not going to worry about it and live my life. Treatment Goals Patient/Caregiver Goals Stop dizziness/falls Personal Factors Other Personal Factors That May Effect Breast cancer, Hx unknown Therapy/Recovery balance disorder PT-OP-C Subjective Start: 05/07/21 15:36 Freq: Status: Active Protocol: Document 06/26/21 16:00 DCW (Rec: 06/26/21 16:46 DCW [id number]) OP-PT Subjective Patient Comments Patient Comments Pt returns from her trip to [place] for a shuffleboard tournament, happy with her performance, but notes there were a few times her dizziness was limiting her. PT-OP-F Manual Assessment Start: 06/12/21 12:47 Freq: Status: Active Protocol: Document 06/12/21 11:15 DCW (Rec: 06/12/21 12:48 DCW [id number]) Manual Assessments Soft Tissue Assessment Soft Tissue Mobility Assessment Moderate tone with tenderness to palpation 3/4: wincing and withdraw along upper trap, cervical paraspinals, and scalenes, R>L. PT-OP-O Vestibular Start: 05/07/21 15:36 Freq: Status: Active Protocol: Document 06/12/21 11:15 DCW (Rec: 06/12/21 12:48 DCW [id number]) Vestibular Assessment Positional Testing [place]-Hallpike Positive Left,Negative Right, Upbeating,> 60 Seconds PT-OP-Q Treatments Start: 05/07/21 15:36 Freq: Status: Active Protocol: Document 06/26/21 16:00 DCW (Rec: 06/26/21 16:46 DCW [id number]) Manual Therapy Treatment Soft Tissue Mobilization 1 Body Location B Upper Trap, scalenes, SCM, suboccipitals Mobilization Type Strumming,Sustained Pressure Intensity/Depth Moderate Body Position Supine Manual Traction Cervical Body Position [place] PT-OP-T Assessment and Plan Start: 05/07/21 15:36 Freq: Status: Active Protocol: Document 06/26/21 16:00 DCW (Rec: 06/26/21 16:46 DCW [id number]) Physical Therapy Assessment Impairments Impairments Balance,Functional Activities, Functional Mobility,Vestibular Goals Two Impairment Moderate R-sided cervical tone restricts ROM Residential Goal (LTG) Pt to improve cervical ROM to normal levels to decrease symptoms of cervicogenic dizziness. LTG Duration 08/12/21 One Impairment Pt does not have an appropriate home exercise program Short Term Goal (STG) Pt to be independent and compliant with an appropriate HEP STG Duration 07/13/21 Assessment Summary Assessment Pt doing well overall, feeling much less instability and dizziness. Physical Therapy Plan Frequency and Duration Frequency of Treatment 2x/Week Duration of Treatment Two month Plan of Care Start Date 06/12/21 Plan of Care End Date 08/12/21 Therapeutic Interventions Therapeutic Interventions Balance Training,Canalithic Repositioning,Manual Therapy, Neuromuscular Re-education, Therapeutic Activities, Therapeutic Exercises, Vestibular Rehabilitation Next Visit Focus/Plan Next Note Type Treatment Note Next Visit Plan Positional testing, CRM as indicated, vestibular testing
--- NOTE | 2021-07-03 12:41 | PT.OTN ---
Current Diagnoses Benign paroxysmal vertigo, bilateral (07/03/21) Physical Therapy Treatment Note PT-OP-A Visit Information Start: 05/07/21 15:36 Freq: Status: Active Protocol: Document 07/03/21 12:02 DCW (Rec: 07/03/21 12:41 DCW [id number]) Out-Patient Physical Therapy Visit Information Visit Information Visit Type Treatment Note Visit Start Time 12:02 Visit Stop Time 12:45 Total Visit Minutes 43 Visit Number 7 Number of [employer]ITY [employer] Visits 0 Evaluation Information Evaluation Date 05/07/21 PT-OP-B Current Condition Start: 05/07/21 15:36 Freq: Status: Active Protocol: Document 05/07/21 12:00 DCW (Rec: 05/07/21 15:58 DCW [id number]) Current Condition History of Current Condition Onset Date 04/25/21 Current Complaints Position-dependent vertigo History of Current Condition Pt is a 61 year old female complaining of a two week history of motion-induced vertigo. Pt reports episodes last a minute or two. Symptoms are provoked by bending down, looking down and to the side, looking up, and changing positions in bed. Pt does repot a few instances when she thinks she was simply standing and got an overwhelming sensation like she was shoved to the side, and ended up falling against the wall. Pt reports symptoms are not waxing/waning in nature. Pt does have a current history of left breast cancer , for which she has recently undergone treatment. Admits to fairly significant stress levels recently, between her cancer treatment, her grandson being born 8 weeks early, and her same grandson undergoing open heart surgery just last week. Prior Treatments and Tests Pt has a history of an as yet undetermined balance disorder which she was seen at this clinic for a number of years ago. Pt was doing well enough that she could function, was having tests run to figure out what was happening, and admits she finally just said that's enough, no one knows what's happening, so I'm just not going to worry about it and live my life. Treatment Goals Patient/Caregiver Goals Stop dizziness/falls Personal Factors Other Personal Factors That May Effect Breast cancer, Hx unknown Therapy/Recovery balance disorder PT-OP-C Subjective Start: 05/07/21 15:36 Freq: Status: Active Protocol: Document 07/03/21 12:02 DCW (Rec: 07/03/21 12:41 DCW [id number]) OP-PT Subjective Patient Comments Patient Comments Last time when I left, I noticed that that C5 is sticking out again, after feeling good for a really long time. PT-OP-F Manual Assessment Start: 06/12/21 12:47 Freq: Status: Active Protocol: Document 06/12/21 11:15 DCW (Rec: 06/12/21 12:48 DCW [id number]) Manual Assessments Soft Tissue Assessment Soft Tissue Mobility Assessment Moderate tone with tenderness to palpation 3/4: wincing and withdraw along upper trap, cervical paraspinals, and scalenes, R>L. PT-OP-O Vestibular Start: 05/07/21 15:36 Freq: Status: Active Protocol: Document 06/12/21 11:15 DCW (Rec: 06/12/21 12:48 DCW [id number]) Vestibular Assessment Positional Testing [place]-Hallpike Positive Left,Negative Right, Upbeating,> 60 Seconds PT-OP-Q Treatments Start: 05/07/21 15:36 Freq: Status: Active Protocol: Document 07/03/21 12:02 DCW (Rec: 07/03/21 12:41 DCW [id number]) Manual Therapy Treatment Soft Tissue Mobilization 1 Body Location B Upper Trap, scalenes, SCM, suboccipitals Mobilization Type Strumming,Sustained Pressure Intensity/Depth Moderate Body Position Supine Manual Traction Cervical Body Position Hooklying Other Other Manual Treatments MWM C5 rotation PT-OP-T Assessment and Plan Start: 05/07/21 15:36 Freq: Status: Active Protocol: Document 07/03/21 12:02 DCW (Rec: 07/03/21 12:41 DCW [id number]) Physical Therapy Assessment Impairments Impairments Balance,Functional Activities, Functional Mobility,Vestibular Goals Two Impairment Moderate R-sided cervical tone restricts ROM Dope Edger Goal (LTG) Pt to improve cervical ROM to normal levels to decrease symptoms of cervicogenic dizziness. LTG Duration 08/12/21 One Impairment Pt does not have an appropriate home exercise program Short Term Goal (STG) Pt to be independent and compliant with an appropriate HEP STG Duration 07/13/21 Assessment Summary Assessment Treatment successful today realigning pt's C5, pt noted immediate improvement Physical Therapy Plan Frequency and Duration Frequency of Treatment 2x/Week Duration of Treatment Two month Plan of Care Start Date 06/12/21 Plan of Care End Date 08/12/21 Therapeutic Interventions Therapeutic Interventions Balance Training,Canalithic Repositioning,Manual Therapy, Neuromuscular Re-education, Therapeutic Activities, Therapeutic Exercises, Vestibular Rehabilitation Next Visit Focus/Plan Next Note Type Treatment Note Next Visit Plan Positional testing, CRM as indicated, vestibular testing
--- NOTE | 2021-07-06 12:47 | PT.OTN ---
Current Diagnoses Benign paroxysmal vertigo, bilateral (07/06/21) Physical Therapy Treatment Note PT-OP-A Visit Information Start: 05/07/21 15:36 Freq: Status: Active Protocol: Document 07/06/21 12:00 DCW (Rec: 07/06/21 12:47 DCW [id number]) Out-Patient Physical Therapy Visit Information Visit Information Visit Type Treatment Note Visit Start Time 12:00 Visit Stop Time 12:45 Total Visit Minutes 45 Visit Number 8 Number of SHADING PAINTER Visits 0 Evaluation Information Evaluation Date 05/07/21 PT-OP-B Current Condition Start: 05/07/21 15:36 Freq: Status: Active Protocol: Document 05/07/21 12:00 DCW (Rec: 05/07/21 15:58 DCW [id number]) Current Condition History of Current Condition Onset Date 04/25/21 Current Complaints Position-dependent vertigo History of Current Condition Pt is a 61 year old female complaining of a two week history of motion-induced vertigo. Pt reports episodes last a minute or two. Symptoms are provoked by bending down, looking down and to the side, looking up, and changing positions in bed. Pt does repot a few instances when she thinks she was simply standing and got an overwhelming sensation like she was shoved to the side, and ended up falling against the wall. Pt reports symptoms are not waxing/waning in nature. Pt does have a current history of left breast cancer , for which she has recently undergone treatment. Admits to fairly significant stress levels recently, between her cancer treatment, her grandson being born 8 weeks early, and her same grandson undergoing open heart surgery just last week. Prior Treatments and Tests Pt has a history of an as yet undetermined balance disorder which she was seen at this clinic for a number of years ago. Pt was doing well enough that she could function, was having tests run to figure out what was happening, and admits she finally just said that's enough, no one knows what's happening, so I'm just not going to worry about it and live my life. Treatment Goals Patient/Caregiver Goals Stop dizziness/falls Personal Factors Other Personal Factors That May Effect Breast cancer, Hx unknown Therapy/Recovery balance disorder PT-OP-C Subjective Start: 05/07/21 15:36 Freq: Status: Active Protocol: Document 07/06/21 12:00 DCW (Rec: 07/06/21 12:47 DCW [id number]) OP-PT Subjective Patient Comments Patient Comments I was pretty sore last night. PT-OP-F Manual Assessment Start: 06/12/21 12:47 Freq: Status: Active Protocol: Document 06/12/21 11:15 DCW (Rec: 06/12/21 12:48 DCW [id number]) Manual Assessments Soft Tissue Assessment Soft Tissue Mobility Assessment Moderate tone with tenderness to palpation 3/4: wincing and withdraw along upper trap, cervical paraspinals, and scalenes, R>L. PT-OP-O Vestibular Start: 05/07/21 15:36 Freq: Status: Active Protocol: Document 06/12/21 11:15 DCW (Rec: 06/12/21 12:48 DCW [id number]) Vestibular Assessment Positional Testing [place]-Hallpike Positive Left,Negative Right, Upbeating,> 60 Seconds PT-OP-Q Treatments Start: 05/07/21 15:36 Freq: Status: Active Protocol: Document 07/06/21 12:00 DCW (Rec: 07/06/21 12:47 DCW [id number]) Manual Therapy Treatment Soft Tissue Mobilization 1 Body Location B Upper Trap, scalenes, SCM, suboccipitals Mobilization Type Strumming,Sustained Pressure Intensity/Depth Moderate Body Position Supine Manual Traction Cervical Body Position Hooklying Other Other Manual Treatments MWM C5 rotation PT-OP-T Assessment and Plan Start: 05/07/21 15:36 Freq: Status: Active Protocol: Document 07/06/21 12:00 DCW (Rec: 07/06/21 12:47 DCW [id number]) Physical Therapy Assessment Impairments Impairments Balance,Functional Activities, Functional Mobility,Vestibular Goals Two Impairment Moderate R-sided cervical tone restricts ROM Production Generalist Goal (LTG) Pt to improve cervical ROM to normal levels to decrease symptoms of cervicogenic dizziness. LTG Duration 08/12/21 One Impairment Pt does not have an appropriate home exercise program Short Term Goal (STG) Pt to be independent and compliant with an appropriate HEP STG Duration 07/13/21 Assessment Summary Assessment Pt again had increased soreness and rotation of C5 starting today, but responded well to treatment, noted significantly decreased soreness. Physical Therapy Plan Frequency and Duration Frequency of Treatment 2x/Week Duration of Treatment Two month Plan of Care Start Date 06/12/21 Plan of Care End Date 08/12/21 Therapeutic Interventions Therapeutic Interventions Balance Training,Canalithic Repositioning,Manual Therapy, Neuromuscular Re-education, Therapeutic Activities, Therapeutic Exercises, Vestibular Rehabilitation Next Visit Focus/Plan Next Note Type Treatment Note Next Visit Plan Positional testing, CRM as indicated, vestibular testing
--- NOTE | 2021-07-31 12:54 | PT.OTN ---
Current Diagnoses Benign paroxysmal vertigo, bilateral (07/31/21) Physical Therapy Treatment Note PT-OP-A Visit Information Start: 05/07/21 15:36 Freq: Status: Active Protocol: Document 07/31/21 12:00 DCW (Rec: 07/31/21 12:54 DCW [id number]) Out-Patient Physical Therapy Visit Information Visit Information Visit Type Treatment Note Visit Start Time 12:00 Visit Stop Time 12:45 Total Visit Minutes 45 Visit Number 9 Number of GUARD IMMIGRATION Visits 0 Evaluation Information Evaluation Date 05/07/21 PT-OP-B Current Condition Start: 05/07/21 15:36 Freq: Status: Active Protocol: Document 05/07/21 12:00 DCW (Rec: 05/07/21 15:58 DCW [id number]) Current Condition History of Current Condition Onset Date 04/25/21 Current Complaints Position-dependent vertigo History of Current Condition Pt is a 61 year old female complaining of a two week history of motion-induced vertigo. Pt reports episodes last a minute or two. Symptoms are provoked by bending down, looking down and to the side, looking up, and changing positions in bed. Pt does repot a few instances when she thinks she was simply standing and got an overwhelming sensation like she was shoved to the side, and ended up falling against the wall. Pt reports symptoms are not waxing/waning in nature. Pt does have a current history of left breast cancer , for which she has recently undergone treatment. Admits to fairly significant stress levels recently, between her cancer treatment, her grandson being born 8 weeks early, and her same grandson undergoing open heart surgery just last week. Prior Treatments and Tests Pt has a history of an as yet undetermined balance disorder which she was seen at this clinic for a number of years ago. Pt was doing well enough that she could function, was having tests run to figure out what was happening, and admits she finally just said that's enough, no one knows what's happening, so I'm just not going to worry about it and live my life. Treatment Goals Patient/Caregiver Goals Stop dizziness/falls Personal Factors Other Personal Factors That May Effect Breast cancer, Hx unknown Therapy/Recovery balance disorder PT-OP-C Subjective Start: 05/07/21 15:36 Freq: Status: Active Protocol: Document 07/31/21 12:00 DCW (Rec: 07/31/21 12:54 DCW [id number]) OP-PT Subjective Patient Comments Patient Comments I'm feeling okay, but my neck has really been bothering me. PT-OP-F Manual Assessment Start: 06/12/21 12:47 Freq: Status: Active Protocol: Document 06/12/21 11:15 DCW (Rec: 06/12/21 12:48 DCW [id number]) Manual Assessments Soft Tissue Assessment Soft Tissue Mobility Assessment Moderate tone with tenderness to palpation 3/4: wincing and withdraw along upper trap, cervical paraspinals, and scalenes, R>L. PT-OP-O Vestibular Start: 05/07/21 15:36 Freq: Status: Active Protocol: Document 06/12/21 11:15 DCW (Rec: 06/12/21 12:48 DCW [id number]) Vestibular Assessment Positional Testing [place]-Hallpike Positive Left,Negative Right, Upbeating,> 60 Seconds PT-OP-Q Treatments Start: 05/07/21 15:36 Freq: Status: Active Protocol: Document 07/31/21 12:00 DCW (Rec: 07/31/21 12:54 DCW [id number]) Therapeutic Exercises Sitting Exercises 1 Sitting Exercise Name Resisted cervical rotation, flexion, extension Resistance Lv 2 Equipment Used T-band Manual Therapy Treatment Soft Tissue Mobilization 1 Body Location B Upper Trap, scalenes, SCM, suboccipitals Mobilization Type Strumming,Sustained Pressure Intensity/Depth Moderate Body Position Supine Manual Traction Cervical Body Position Hooklying Other Other Manual Treatments MWM C5 rotation PT-OP-T Assessment and Plan Start: 05/07/21 15:36 Freq: Status: Active Protocol: Document 07/31/21 12:00 DCW (Rec: 07/31/21 12:54 DCW [id number]) Physical Therapy Assessment Impairments Impairments Balance,Functional Activities, Functional Mobility,Vestibular Goals Two Impairment Moderate R-sided cervical tone restricts ROM Fci Goal (LTG) Pt to improve cervical ROM to normal levels to decrease symptoms of cervicogenic dizziness. LTG Duration 08/12/21 One Impairment Pt does not have an appropriate home exercise program Short Term Goal (STG) Pt to be independent and compliant with an appropriate HEP STG Duration 07/13/21 Assessment Summary Assessment Pt presented today with both C5 and C3 rotated clockwise, but responded well to MWM and felt better afterward. Added gentle cervical strengthening to help stabilize vertebrae. Physical Therapy Plan Frequency and Duration Frequency of Treatment 2x/Week Duration of Treatment Two month Plan of Care Start Date 06/12/21 Plan of Care End Date 08/12/21 Therapeutic Interventions Therapeutic Interventions Balance Training,Canalithic Repositioning,Manual Therapy, Neuromuscular Re-education, Therapeutic Activities, Therapeutic Exercises, Vestibular Rehabilitation Next Visit Focus/Plan Next Note Type Treatment Note Next Visit Plan Positional testing, CRM as indicated, vestibular testing
--- NOTE | 2021-08-05 12:00 | PT.OTN ---
Current Diagnoses Benign paroxysmal vertigo, bilateral (08/05/21) Physical Therapy Treatment Note PT-OP-A Visit Information Start: 05/07/21 15:36 Freq: Status: Active Protocol: Document 08/05/21 11:15 DCW (Rec: 08/05/21 11:59 DCW [id number]) Out-Patient Physical Therapy Visit Information Visit Information Visit Type Treatment Note Visit Start Time 11:15 Visit Stop Time 12:00 Total Visit Minutes 45 Visit Number 10 Number of BURIAL VAULT MAKER Visits 0 Evaluation Information Evaluation Date 05/07/21 PT-OP-B Current Condition Start: 05/07/21 15:36 Freq: Status: Active Protocol: Document 05/07/21 12:00 DCW (Rec: 05/07/21 15:58 DCW [id number]) Current Condition History of Current Condition Onset Date 04/25/21 Current Complaints Position-dependent vertigo History of Current Condition Pt is a 61 year old female complaining of a two week history of motion-induced vertigo. Pt reports episodes last a minute or two. Symptoms are provoked by bending down, looking down and to the side, looking up, and changing positions in bed. Pt does repot a few instances when she thinks she was simply standing and got an overwhelming sensation like she was shoved to the side, and ended up falling against the wall. Pt reports symptoms are not waxing/waning in nature. Pt does have a current history of left breast cancer , for which she has recently undergone treatment. Admits to fairly significant stress levels recently, between her cancer treatment, her grandson being born 8 weeks early, and her same grandson undergoing open heart surgery just last week. Prior Treatments and Tests Pt has a history of an as yet undetermined balance disorder which she was seen at this clinic for a number of years ago. Pt was doing well enough that she could function, was having tests run to figure out what was happening, and admits she finally just said that's enough, no one knows what's happening, so I'm just not going to worry about it and live my life. Treatment Goals Patient/Caregiver Goals Stop dizziness/falls Personal Factors Other Personal Factors That May Effect Breast cancer, Hx unknown Therapy/Recovery balance disorder PT-OP-C Subjective Start: 05/07/21 15:36 Freq: Status: Active Protocol: Document 08/05/21 11:15 DCW (Rec: 08/05/21 11:59 DCW [id number]) OP-PT Subjective Patient Comments Patient Comments It's sore on the left side, but not horrible. PT-OP-F Manual Assessment Start: 06/12/21 12:47 Freq: Status: Active Protocol: Document 06/12/21 11:15 DCW (Rec: 06/12/21 12:48 DCW [id number]) Manual Assessments Soft Tissue Assessment Soft Tissue Mobility Assessment Moderate tone with tenderness to palpation 3/4: wincing and withdraw along upper trap, cervical paraspinals, and scalenes, R>L. PT-OP-O Vestibular Start: 05/07/21 15:36 Freq: Status: Active Protocol: Document 06/12/21 11:15 DCW (Rec: 06/12/21 12:48 DCW [id number]) Vestibular Assessment Positional Testing Loren-Hallpike Positive Left,Negative Right, Upbeating,> 60 Seconds PT-OP-Q Treatments Start: 05/07/21 15:36 Freq: Status: Active Protocol: Document 08/05/21 11:15 DCW (Rec: 08/05/21 11:59 DCW [id number]) Manual Therapy Treatment Soft Tissue Mobilization 1 Body Location B Upper Trap, scalenes, SCM, suboccipitals Mobilization Type Strumming,Sustained Pressure Intensity/Depth Moderate Body Position Supine Manual Traction Cervical Body Position Hooklying Other Other Manual Treatments MWM C5 rotation PT-OP-T Assessment and Plan Start: 05/07/21 15:36 Freq: Status: Active Protocol: Document 08/05/21 11:15 DCW (Rec: 08/05/21 11:59 DCW [id number]) Physical Therapy Assessment Impairments Impairments Balance,Functional Activities, Functional Mobility,Vestibular Goals Two Impairment Moderate R-sided cervical tone restricts ROM Oracle Database Consultant Goal (LTG) Pt to improve cervical ROM to normal levels to decrease symptoms of cervicogenic dizziness. LTG Duration 08/12/21 One Impairment Pt does not have an appropriate home exercise program Short Term Goal (STG) Pt to be independent and compliant with an appropriate HEP STG Duration 07/13/21 Assessment Summary Assessment Pt still slightly rotated with her C3 and C5, but responded well to treatment. Physical Therapy Plan Frequency and Duration Frequency of Treatment 2x/Week Duration of Treatment Two month Plan of Care Start Date 06/12/21 Plan of Care End Date 08/12/21 Therapeutic Interventions Therapeutic Interventions Balance Training,Canalithic Repositioning,Manual Therapy, Neuromuscular Re-education, Therapeutic Activities, Therapeutic Exercises, Vestibular Rehabilitation Next Visit Focus/Plan Next Note Type Treatment Note Next Visit Plan Positional testing, CRM as indicated, vestibular testing
--- NOTE | 2021-08-13 14:29 | PT.OTN ---
Current Diagnoses Benign paroxysmal vertigo, bilateral (08/13/21) Physical Therapy Treatment Note PT-OP-A Visit Information Start: 05/07/21 15:36 Freq: Status: Active Protocol: Document 08/13/21 13:45 DCW (Rec: 08/13/21 14:28 DCW [id number]) Out-Patient Physical Therapy Visit Information Visit Information Visit Type Treatment Note Visit Start Time 13:45 Visit Stop Time 14:30 Total Visit Minutes 45 Visit Number 11 Number of FELT CARBONIZER Visits 0 Evaluation Information Evaluation Date 05/07/21 PT-OP-B Current Condition Start: 05/07/21 15:36 Freq: Status: Active Protocol: Document 05/07/21 12:00 DCW (Rec: 05/07/21 15:58 DCW [id number]) Current Condition History of Current Condition Onset Date 04/25/21 Current Complaints Position-dependent vertigo History of Current Condition Pt is a 61 year old female complaining of a two week history of motion-induced vertigo. Pt reports episodes last a minute or two. Symptoms are provoked by bending down, looking down and to the side, looking up, and changing positions in bed. Pt does repot a few instances when she thinks she was simply standing and got an overwhelming sensation like she was shoved to the side, and ended up falling against the wall. Pt reports symptoms are not waxing/waning in nature. Pt does have a current history of left breast cancer , for which she has recently undergone treatment. Admits to fairly significant stress levels recently, between her cancer treatment, her grandson being born 8 weeks early, and her same grandson undergoing open heart surgery just last week. Prior Treatments and Tests Pt has a history of an as yet undetermined balance disorder which she was seen at this clinic for a number of years ago. Pt was doing well enough that she could function, was having tests run to figure out what was happening, and admits she finally just said that's enough, no one knows what's happening, so I'm just not going to worry about it and live my life. Treatment Goals Patient/Caregiver Goals Stop dizziness/falls Personal Factors Other Personal Factors That May Effect Breast cancer, Hx unknown Therapy/Recovery balance disorder PT-OP-C Subjective Start: 05/07/21 15:36 Freq: Status: Active Protocol: Document 08/13/21 13:45 DCW (Rec: 08/13/21 14:28 DCW [id number]) OP-PT Subjective Patient Comments Patient Comments Pt feeling pretty good today . Whatever you did last time, I haven't messed up yet. PT-OP-F Manual Assessment Start: 06/12/21 12:47 Freq: Status: Active Protocol: Document 08/13/21 13:45 DCW (Rec: 08/13/21 14:28 DCW [id number]) Manual Assessments Soft Tissue Assessment Soft Tissue Mobility Assessment Moderate tone with tenderness to palpation 2/4: pain with wincing along upper trap, cervical paraspinals, and scalenes, R>L. PT-OP-O Vestibular Start: 05/07/21 15:36 Freq: Status: Active Protocol: Document 06/12/21 11:15 DCW (Rec: 06/12/21 12:48 DCW [id number]) Vestibular Assessment Positional Testing [place]-Hallpike Positive Left,Negative Right, Upbeating,> 60 Seconds PT-OP-Q Treatments Start: 05/07/21 15:36 Freq: Status: Active Protocol: Document 08/13/21 13:45 DCW (Rec: 08/13/21 14:28 DCW [id number]) Manual Therapy Treatment Soft Tissue Mobilization 1 Body Location B Upper Trap, scalenes, SCM, suboccipitals Mobilization Type Strumming,Sustained Pressure Intensity/Depth Moderate Body Position Supine Manual Traction Cervical Body Position Hooklying Other Other Manual Treatments MWM C5 rotation PT-OP-T Assessment and Plan Start: 05/07/21 15:36 Freq: Status: Active Protocol: Document 08/13/21 13:45 DCW (Rec: 08/13/21 14:28 DCW [id number]) Physical Therapy Assessment Impairments Impairments Balance,Functional Activities, Functional Mobility,Vestibular Goals Two Impairment Moderate R-sided cervical tone restricts ROM Care Home Goal (LTG) Pt to improve cervical ROM to normal levels to decrease symptoms of cervicogenic dizziness. LTG Duration - Improving One Impairment Pt does not have an appropriate home exercise program Short Term Goal (STG) Pt to be independent and compliant with an appropriate HEP STG Duration Met Assessment Summary Assessment Mild vertebral rotation at baseline, fixed with MWM, much improved cervical ROM afterward Physical Therapy Plan Frequency and Duration Frequency of Treatment 2x/Week Duration of Treatment Two month Plan of Care Start Date 08/13/21 Plan of Care End Date 10/12/21 Therapeutic Interventions Therapeutic Interventions Balance Training,Canalithic Repositioning,Manual Therapy, Neuromuscular Re-education, Therapeutic Activities, Therapeutic Exercises, Vestibular Rehabilitation Next Visit Focus/Plan Next Note Type Treatment Note Next Visit Plan Positional testing, CRM as indicated, vestibular testing
--- NOTE | 2021-08-13 14:29 | PT.OPPOC ---
Physical, Occupational & Speech Therapy [facility] Current Diagnoses Benign paroxysmal vertigo, bilateral (08/13/21) Visit Care Team Role Provider Type Lauren King PA-C Attending Provider Non-Staff Primary Care Provider Referring Provider Specialty: Internal Medicine Address: [address] [place], [address] Email: Plan Of Care PT-OP-T Assessment and Plan Start: 05/07/21 15:36 Freq: Status: Active Protocol: Document 08/13/21 13:45 DCW (Rec: 08/13/21 14:28 DCW [id number]) Physical Therapy Assessment Impairments Impairments Balance,Functional Activities, Functional Mobility,Vestibular Goals Two Impairment Moderate R-sided cervical tone restricts ROM Senior Living Goal (LTG) Pt to improve cervical ROM to normal levels to decrease symptoms of cervicogenic dizziness. LTG Duration - Improving One Impairment Pt does not have an appropriate home exercise program Short Term Goal (STG) Pt to be independent and compliant with an appropriate HEP STG Duration Met Assessment Summary Assessment Mild vertebral rotation at baseline, fixed with MWM, much improved cervical ROM afterward Physical Therapy Plan Frequency and Duration Frequency of Treatment 2x/Week Duration of Treatment Two month Plan of Care Start Date 08/13/21 Plan of Care End Date 10/12/21 Therapeutic Interventions Therapeutic Interventions Balance Training,Canalithic Repositioning,Manual Therapy, Neuromuscular Re-education, Therapeutic Activities, Therapeutic Exercises, Vestibular Rehabilitation Next Visit Focus/Plan Next Note Type Treatment Note Next Visit Plan Positional testing, CRM as indicated, vestibular testing Plan of Care Dates Plan of Care Start Date 08/13/21 Plan of Care End Date 10/12/21 Electronically Signed by: Gabe Wadsworth, PT 08/13/21 [id number] Please Sign and Return: I have reviewed this Plan of Care and certify that the skilled therapy services above are required to meet the patient?s needs. Physician Signature Date Printed Name and Credentials Clinical Instructor Signature Printed Name and Credentials
--- NOTE | 2021-08-21 12:44 | PT.OTN ---
Current Diagnoses Benign paroxysmal vertigo, bilateral (08/21/21) Physical Therapy Treatment Note PT-OP-A Visit Information Start: 05/07/21 15:36 Freq: Status: Active Protocol: Document 08/21/21 12:00 DCW (Rec: 08/21/21 12:44 DCW [id number]) Out-Patient Physical Therapy Visit Information Visit Information Visit Type Treatment Note Visit Start Time 12:00 Visit Stop Time 12:45 Total Visit Minutes 45 Visit Number 12 Number of ELECTRICAL DEVELOPMENT ENGINEER Visits 0 Evaluation Information Evaluation Date 05/07/21 PT-OP-B Current Condition Start: 05/07/21 15:36 Freq: Status: Active Protocol: Document 05/07/21 12:00 DCW (Rec: 05/07/21 15:58 DCW [id number]) Current Condition History of Current Condition Onset Date 04/25/21 Current Complaints Position-dependent vertigo History of Current Condition Pt is a 61 year old female complaining of a two week history of motion-induced vertigo. Pt reports episodes last a minute or two. Symptoms are provoked by bending down, looking down and to the side, looking up, and changing positions in bed. Pt does repot a few instances when she thinks she was simply standing and got an overwhelming sensation like she was shoved to the side, and ended up falling against the wall. Pt reports symptoms are not waxing/waning in nature. Pt does have a current history of left breast cancer , for which she has recently undergone treatment. Admits to fairly significant stress levels recently, between her cancer treatment, her grandson being born 8 weeks early, and her same grandson undergoing open heart surgery just last week. Prior Treatments and Tests Pt has a history of an as yet undetermined balance disorder which she was seen at this clinic for a number of years ago. Pt was doing well enough that she could function, was having tests run to figure out what was happening, and admits she finally just said that's enough, no one knows what's happening, so I'm just not going to worry about it and live my life. Treatment Goals Patient/Caregiver Goals Stop dizziness/falls Personal Factors Other Personal Factors That May Effect Breast cancer, Hx unknown Therapy/Recovery balance disorder PT-OP-C Subjective Start: 05/07/21 15:36 Freq: Status: Active Protocol: Document 08/21/21 12:00 DCW (Rec: 08/21/21 12:44 DCW [id number]) OP-PT Subjective Patient Comments Patient Comments I'm a little sore on the right side. PT-OP-F Manual Assessment Start: 06/12/21 12:47 Freq: Status: Active Protocol: Document 08/13/21 13:45 DCW (Rec: 08/13/21 14:28 DCW [id number]) Manual Assessments Soft Tissue Assessment Soft Tissue Mobility Assessment Moderate tone with tenderness to palpation 2/4: pain with wincing along upper trap, cervical paraspinals, and scalenes, R>L. PT-OP-O Vestibular Start: 05/07/21 15:36 Freq: Status: Active Protocol: Document 06/12/21 11:15 DCW (Rec: 06/12/21 12:48 DCW [id number]) Vestibular Assessment Positional Testing [place]-Hallpike Positive Left,Negative Right, Upbeating,> 60 Seconds PT-OP-Q Treatments Start: 05/07/21 15:36 Freq: Status: Active Protocol: Document 08/21/21 12:00 DCW (Rec: 08/21/21 12:44 DCW [id number]) Manual Therapy Treatment Soft Tissue Mobilization 1 Body Location B Upper Trap, scalenes, SCM, suboccipitals Mobilization Type Strumming,Sustained Pressure Intensity/Depth Moderate Body Position Supine Manual Traction Cervical Body Position Hooklying Other Other Manual Treatments MWM C5 rotation PT-OP-T Assessment and Plan Start: 05/07/21 15:36 Freq: Status: Active Protocol: Document 08/21/21 12:00 DCW (Rec: 08/21/21 12:44 DCW [id number]) Physical Therapy Assessment Impairments Impairments Balance,Functional Activities, Functional Mobility,Vestibular Goals Two Impairment Moderate R-sided cervical tone restricts ROM Filtering Machine Tender Goal (LTG) Pt to improve cervical ROM to normal levels to decrease symptoms of cervicogenic dizziness. LTG Duration - Improving One Impairment Pt does not have an appropriate home exercise program Short Term Goal (STG) Pt to be independent and compliant with an appropriate HEP STG Duration Met Assessment Summary Assessment Pt once again rotated slightly out of place, but responded well to MWM. Pt noted improved ROM and decreased pain following her appointment. Physical Therapy Plan Frequency and Duration Frequency of Treatment 2x/Week Duration of Treatment Two month Plan of Care Start Date 08/13/21 Plan of Care End Date 10/12/21 Therapeutic Interventions Therapeutic Interventions Balance Training,Canalithic Repositioning,Manual Therapy, Neuromuscular Re-education, Therapeutic Activities, Therapeutic Exercises, Vestibular Rehabilitation Next Visit Focus/Plan Next Note Type Treatment Note Next Visit Plan Positional testing, CRM as indicated, vestibular testing
--- NOTE | 2021-08-28 12:49 | PT.OTN ---
Current Diagnoses Benign paroxysmal vertigo, bilateral (08/28/21) Physical Therapy Treatment Note PT-OP-A Visit Information Start: 05/07/21 15:36 Freq: Status: Active Protocol: Document 08/28/21 12:00 DCW (Rec: 08/28/21 12:49 DCW [id number]) Out-Patient Physical Therapy Visit Information Visit Information Visit Type Treatment Note Visit Start Time 12:00 Visit Stop Time 12:45 Total Visit Minutes 45 Visit Number 13 Number of YEAST CAKE CUTTER Visits 0 Evaluation Information Evaluation Date 05/07/21 PT-OP-B Current Condition Start: 05/07/21 15:36 Freq: Status: Active Protocol: Document 05/07/21 12:00 DCW (Rec: 05/07/21 15:58 DCW [id number]) Current Condition History of Current Condition Onset Date 04/25/21 Current Complaints Position-dependent vertigo History of Current Condition Pt is a 61 year old female complaining of a two week history of motion-induced vertigo. Pt reports episodes last a minute or two. Symptoms are provoked by bending down, looking down and to the side, looking up, and changing positions in bed. Pt does repot a few instances when she thinks she was simply standing and got an overwhelming sensation like she was shoved to the side, and ended up falling against the wall. Pt reports symptoms are not waxing/waning in nature. Pt does have a current history of left breast cancer , for which she has recently undergone treatment. Admits to fairly significant stress levels recently, between her cancer treatment, her grandson being born 8 weeks early, and her same grandson undergoing open heart surgery just last week. Prior Treatments and Tests Pt has a history of an as yet undetermined balance disorder which she was seen at this clinic for a number of years ago. Pt was doing well enough that she could function, was having tests run to figure out what was happening, and admits she finally just said that's enough, no one knows what's happening, so I'm just not going to worry about it and live my life. Treatment Goals Patient/Caregiver Goals Stop dizziness/falls Personal Factors Other Personal Factors That May Effect Breast cancer, Hx unknown Therapy/Recovery balance disorder PT-OP-C Subjective Start: 05/07/21 15:36 Freq: Status: Active Protocol: Document 08/28/21 12:00 DCW (Rec: 08/28/21 12:49 DCW [id number]) OP-PT Subjective Patient Comments Patient Comments Pt pretty good today. PT-OP-F Manual Assessment Start: 06/12/21 12:47 Freq: Status: Active Protocol: Document 08/13/21 13:45 DCW (Rec: 08/13/21 14:28 DCW [id number]) Manual Assessments Soft Tissue Assessment Soft Tissue Mobility Assessment Moderate tone with tenderness to palpation 2/4: pain with wincing along upper trap, cervical paraspinals, and scalenes, R>L. PT-OP-O Vestibular Start: 05/07/21 15:36 Freq: Status: Active Protocol: Document 06/12/21 11:15 DCW (Rec: 06/12/21 12:48 DCW [id number]) Vestibular Assessment Positional Testing [place]-Hallpike Positive Left,Negative Right, Upbeating,> 60 Seconds PT-OP-Q Treatments Start: 05/07/21 15:36 Freq: Status: Active Protocol: Document 08/28/21 12:00 DCW (Rec: 08/28/21 12:49 DCW [id number]) Manual Therapy Treatment Soft Tissue Mobilization 1 Body Location B Upper Trap, scalenes, SCM, suboccipitals Mobilization Type Strumming,Sustained Pressure Intensity/Depth Moderate Body Position Supine Manual Traction Cervical Body Position Hooklying Other Other Manual Treatments MWM C3, C5 rotation PT-OP-T Assessment and Plan Start: 05/07/21 15:36 Freq: Status: Active Protocol: Document 08/28/21 12:00 DCW (Rec: 08/28/21 12:49 DCW [id number]) Physical Therapy Assessment Impairments Impairments Balance,Functional Activities, Functional Mobility,Vestibular Goals Two Impairment Moderate R-sided cervical tone restricts ROM Nuclear Scientist Goal (LTG) Pt to improve cervical ROM to normal levels to decrease symptoms of cervicogenic dizziness. LTG Duration - Improving One Impairment Pt does not have an appropriate home exercise program Short Term Goal (STG) Pt to be independent and compliant with an appropriate HEP STG Duration Met Assessment Summary Assessment Pt doing well enought that she would like to try to wait two weeks until her next visit to see how she does without regular therapy sessions. Physical Therapy Plan Frequency and Duration Frequency of Treatment 2x/Week Duration of Treatment Two month Plan of Care Start Date 08/13/21 Plan of Care End Date 10/12/21 Therapeutic Interventions Therapeutic Interventions Balance Training,Canalithic Repositioning,Manual Therapy, Neuromuscular Re-education, Therapeutic Activities, Therapeutic Exercises, Vestibular Rehabilitation Next Visit Focus/Plan Next Note Type Treatment Note Next Visit Plan Positional testing, CRM as indicated, vestibular testing
--- NOTE | 2021-09-11 12:40 | PT.OTN ---
Current Diagnoses Benign paroxysmal vertigo, bilateral (09/11/21) Physical Therapy Treatment Note PT-OP-A Visit Information Start: 05/07/21 15:36 Freq: Status: Active Protocol: Document 09/11/21 12:00 DCW (Rec: 09/11/21 12:40 DCW [id number]) Out-Patient Physical Therapy Visit Information Visit Information Visit Type Treatment Note Visit Start Time 12:00 Visit Stop Time 12:45 Total Visit Minutes 45 Visit Number 14 Number of DRINK MIXER Visits 0 Evaluation Information Evaluation Date 05/07/21 PT-OP-B Current Condition Start: 05/07/21 15:36 Freq: Status: Active Protocol: Document 05/07/21 12:00 DCW (Rec: 05/07/21 15:58 DCW [id number]) Current Condition History of Current Condition Onset Date 04/25/21 Current Complaints Position-dependent vertigo History of Current Condition Pt is a 61 year old female complaining of a two week history of motion-induced vertigo. Pt reports episodes last a minute or two. Symptoms are provoked by bending down, looking down and to the side, looking up, and changing positions in bed. Pt does repot a few instances when she thinks she was simply standing and got an overwhelming sensation like she was shoved to the side, and ended up falling against the wall. Pt reports symptoms are not waxing/waning in nature. Pt does have a current history of left breast cancer , for which she has recently undergone treatment. Admits to fairly significant stress levels recently, between her cancer treatment, her grandson being born 8 weeks early, and her same grandson undergoing open heart surgery just last week. Prior Treatments and Tests Pt has a history of an as yet undetermined balance disorder which she was seen at this clinic for a number of years ago. Pt was doing well enough that she could function, was having tests run to figure out what was happening, and admits she finally just said that's enough, no one knows what's happening, so I'm just not going to worry about it and live my life. Treatment Goals Patient/Caregiver Goals Stop dizziness/falls Personal Factors Other Personal Factors That May Effect Breast cancer, Hx unknown Therapy/Recovery balance disorder PT-OP-C Subjective Start: 05/07/21 15:36 Freq: Status: Active Protocol: Document 09/11/21 12:00 DCW (Rec: 09/11/21 12:40 DCW [id number]) OP-PT Subjective Patient Comments Patient Comments Pt notes that she had been feeling good for the last two weeks until just Tuesday night, was pretty bad last night, and has now evened out today, so she is currently doing alright. PT-OP-F Manual Assessment Start: 06/12/21 12:47 Freq: Status: Active Protocol: Document 08/13/21 13:45 DCW (Rec: 08/13/21 14:28 DCW [id number]) Manual Assessments Soft Tissue Assessment Soft Tissue Mobility Assessment Moderate tone with tenderness to palpation 2/: pain with wincing along upper trap, cervical paraspinals, and scalenes, R>L. PT-OP-O Vestibular Start: 05/07/21 15:36 Freq: Status: Active Protocol: Document 06/12/21 11:15 DCW (Rec: 06/12/21 12:48 DCW [id number]) Vestibular Assessment Positional Testing [place]-Hallpike Positive Left,Negative Right, Upbeating,> 60 Seconds PT-OP-Q Treatments Start: 05/07/21 15:36 Freq: Status: Active Protocol: Document 09/11/21 12:00 DCW (Rec: 09/11/21 12:40 DCW [id number]) Manual Therapy Treatment Soft Tissue Mobilization 1 Body Location B Upper Trap, scalenes, SCM, suboccipitals Mobilization Type Strumming,Sustained Pressure Intensity/Depth Moderate Body Position Supine Manual Traction Cervical Body Position Hooklying Other Other Manual Treatments MWM C3, C5 rotation PT-OP-T Assessment and Plan Start: 05/07/21 15:36 Freq: Status: Active Protocol: Document 09/11/21 12:00 DCW (Rec: 09/11/21 12:40 DCW [id number]) Physical Therapy Assessment Impairments Impairments Balance,Functional Activities, Functional Mobility,Vestibular Goals Two Impairment Moderate R-sided cervical tone restricts ROM Detention Goal (LTG) Pt to improve cervical ROM to normal levels to decrease symptoms of cervicogenic dizziness. LTG Duration - Improving One Impairment Pt does not have an appropriate home exercise program Short Term Goal (STG) Pt to be independent and compliant with an appropriate HEP STG Duration Met Assessment Summary Assessment Pt doing well with increased time between appointments, but still presented with C5 rotation today, which responded well to MWM. Physical Therapy Plan Frequency and Duration Frequency of Treatment 2x/Week Duration of Treatment Two month Plan of Care Start Date 08/13/21 Plan of Care End Date 10/12/21 Therapeutic Interventions Therapeutic Interventions Balance Training,Canalithic Repositioning,Manual Therapy, Neuromuscular Re-education, Therapeutic Activities, Therapeutic Exercises, Vestibular Rehabilitation Next Visit Focus/Plan Next Note Type Treatment Note Next Visit Plan Positional testing, CRM as indicated, vestibular testing
--- NOTE | 2021-09-25 12:46 | PT.OTN ---
Current Diagnoses Benign paroxysmal vertigo, bilateral (09/25/21) Physical Therapy Treatment Note PT-OP-A Visit Information Start: 05/07/21 15:36 Freq: Status: Active Protocol: Document 09/25/21 12:00 DCW (Rec: 09/25/21 12:46 DCW [id number]) Out-Patient Physical Therapy Visit Information Visit Information Visit Type Treatment Note Visit Start Time 12:00 Visit Stop Time 12:45 Total Visit Minutes 45 Visit Number 15 Number of SALES MERCHANDISE ASSOCIATE Visits 0 Evaluation Information Evaluation Date 05/07/21 PT-OP-B Current Condition Start: 05/07/21 15:36 Freq: Status: Active Protocol: Document 05/07/21 12:00 DCW (Rec: 05/07/21 15:58 DCW [id number]) Current Condition History of Current Condition Onset Date 04/25/21 Current Complaints Position-dependent vertigo History of Current Condition Pt is a 61 year old female complaining of a two week history of motion-induced vertigo. Pt reports episodes last a minute or two. Symptoms are provoked by bending down, looking down and to the side, looking up, and changing positions in bed. Pt does repot a few instances when she thinks she was simply standing and got an overwhelming sensation like she was shoved to the side, and ended up falling against the wall. Pt reports symptoms are not waxing/waning in nature. Pt does have a current history of left breast cancer , for which she has recently undergone treatment. Admits to fairly significant stress levels recently, between her cancer treatment, her grandson being born 8 weeks early, and her same grandson undergoing open heart surgery just last week. Prior Treatments and Tests Pt has a history of an as yet undetermined balance disorder which she was seen at this clinic for a number of years ago. Pt was doing well enough that she could function, was having tests run to figure out what was happening, and admits she finally just said that's enough, no one knows what's happening, so I'm just not going to worry about it and live my life. Treatment Goals Patient/Caregiver Goals Stop dizziness/falls Personal Factors Other Personal Factors That May Effect Breast cancer, Hx unknown Therapy/Recovery balance disorder PT-OP-C Subjective Start: 05/07/21 15:36 Freq: Status: Active Protocol: Document 09/25/21 12:00 DCW (Rec: 09/25/21 12:46 DCW [id number]) OP-PT Subjective Patient Comments Patient Comments Not a lot of pain or anything , I can tell it needs a little something, but nothing huge. PT-OP-F Manual Assessment Start: 06/12/21 12:47 Freq: Status: Active Protocol: Document 08/13/21 13:45 DCW (Rec: 08/13/21 14:28 DCW [id number]) Manual Assessments Soft Tissue Assessment Soft Tissue Mobility Assessment Moderate tone with tenderness to palpation 2/4: pain with wincing along upper trap, cervical paraspinals, and scalenes, R>L. PT-OP-O Vestibular Start: 05/07/21 15:36 Freq: Status: Active Protocol: Document 06/12/21 11:15 DCW (Rec: 06/12/21 12:48 DCW [id number]) Vestibular Assessment Positional Testing [place]-Hallpike Positive Left,Negative Right, Upbeating,> 60 Seconds PT-OP-Q Treatments Start: 05/07/21 15:36 Freq: Status: Active Protocol: Document 09/25/21 12:00 DCW (Rec: 09/25/21 12:46 DCW [id number]) Manual Therapy Treatment Soft Tissue Mobilization 1 Body Location B Upper Trap, scalenes, SCM, suboccipitals Mobilization Type Strumming,Sustained Pressure Intensity/Depth Moderate Body Position Supine Manual Traction Cervical Body Position Hooklying Other Other Manual Treatments MWM C3, C5 rotation PT-OP-T Assessment and Plan Start: 05/07/21 15:36 Freq: Status: Active Protocol: Document 09/25/21 12:00 DCW (Rec: 09/25/21 12:46 DCW [id number]) Physical Therapy Assessment Impairments Impairments Balance,Functional Activities, Functional Mobility,Vestibular Goals Two Impairment Moderate R-sided cervical tone restricts ROM Guest Services Director Goal (LTG) Pt to improve cervical ROM to normal levels to decrease symptoms of cervicogenic dizziness. LTG Duration - Improving One Impairment Pt does not have an appropriate home exercise program Short Term Goal (STG) Pt to be independent and compliant with an appropriate HEP STG Duration Met Assessment Summary Assessment Pt continuing to tolerate extended break between sessions, will attempt one more in one month to ensure pt is appropriate for discharge from skilled therapy. Physical Therapy Plan Frequency and Duration Frequency of Treatment 2x/Week Duration of Treatment Two month Plan of Care Start Date 08/13/21 Plan of Care End Date 10/12/21 Therapeutic Interventions Therapeutic Interventions Balance Training,Canalithic Repositioning,Manual Therapy, Neuromuscular Re-education, Therapeutic Activities, Therapeutic Exercises, Vestibular Rehabilitation Next Visit Focus/Plan Next Note Type Treatment Note Next Visit Plan Positional testing, CRM as indicated, vestibular testing
--- NOTE | 2021-10-23 12:50 | PT.OTN ---
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 Pt reports episodes last a minute or two. Symptoms are provoked by bending down, looking down and to the side, looking up, and changing positions in bed. Pt does repot a few instances when she thinks she was simply standing and got an overwhelming sensation like she was shoved to the side, and ended up falling against the wall. Pt reports symptoms are not waxing/waning in nature. Pt does have a current history of left breast cancer , for which she has recently undergone treatment. Admits to fairly significant stress levels recently, between her cancer treatment, her grandson being born 8 weeks early, and her same grandson undergoing open heart surgery just last week. Prior Treatments and Tests Pt has a history of an as yet undetermined balance disorder which she was seen at this clinic for a number of years ago. Pt was doing well enough that she could function, was having tests run to figure out what was happening, and admits she finally just said that's enough, no one knows what's happening, so I'm just not going to worry about it and live my life. Treatment Goals Patient/Caregiver Goals Stop dizziness/falls Personal Factors Other Personal Factors That May Effect Breast cancer, Hx unknown Therapy/Recovery balance disorder PT-OP-C Subjective Start: 05/07/21 15:36 Freq: Status: Active Protocol: Document 10/23/21 12:00 DCW (Rec: 10/23/21 12:49 DCW [id number]) OP-PT Subjective Patient Comments Patient Comments Pt is currently 10 days post- op from a cosmetic reconstructive surgery following her multiple surgeries secondary to breast cancer. Pt moving a little gingerly today, but overall feeling good. Neck a little stiff, but she is happy it is not worse after a month off of PT. PT-OP-F Manual Assessment Start: 06/12/21 12:47 Freq: Status: Active Protocol: Document 10/23/21 12:00 DCW (Rec: 10/23/21 12:37 DCW [id number]) Manual Assessments Soft Tissue Assessment Soft Tissue Mobility Assessment Moderate tone with tenderness to palpation 2/4: pain with wincing along upper trap, cervical paraspinals, and scalenes, R>L. PT-OP-O Vestibular Start: 05/07/21 15:36 Freq: Status: Active Protocol: Document 06/12/21 11:15 DCW (Rec: 06/12/21 12:48 DCW [id number]) Vestibular Assessment Positional Testing Loren-Hallpike Positive Left,Negative Right, Upbeating,> 60 Seconds PT-OP-Q Treatments Start: 05/07/21 15:36 Freq: Status: Active Protocol: Document 10/23/21 12:00 DCW (Rec: 10/23/21 12:49 DCW [id number]) Manual Therapy Treatment Soft Tissue Mobilization 1 Body Location B Upper Trap, scalenes, SCM, suboccipitals Mobilization Type Strumming,Sustained Pressure Intensity/Depth Moderate Body Position Supine Manual Traction Cervical Body Position Hooklying Other Other Manual Treatments MWM C3, C5 rotation PT-OP-T Assessment and Plan Start: 05/07/21 15:36 Freq: Status: Active Protocol: Document 10/23/21 12:00 DCW (Rec: 10/23/21 12:49 DCW [id number]) Physical Therapy Assessment Impairments Impairments Balance,Functional Activities, Functional Mobility,Vestibular Goals Two Impairment Moderate R-sided cervical tone restricts ROM 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 LTG Duration 12/12/21 - Improving One Impairment Pt does not have an appropriate home exercise program Short Term Goal (STG) Pt to be independent and compliant with an appropriate HEP STG Duration Met Assessment Summary Assessment Pt doing well, was hoping to discharge after today's visit, but feels there was a slight set-back with her mobility and dizziness following her surgery 10 days ago. Would prefer one more visit in ~1 month in order to ensure no further setbacks occur, therapist is in agreement with this idea. Physical Therapy Plan Frequency and Duration Frequency of Treatment 1x/Month Duration of Treatment 35 days Plan of Care Start Date 10/23/21 Plan of Care End Date 11/27/21 Therapeutic Interventions Therapeutic Interventions Balance Training,Canalithic Repositioning,Manual Therapy, Neuromuscular Re-education, Therapeutic Activities, Therapeutic Exercises, Vestibular Rehabilitation Next Visit Focus/Plan Next Note Type Discharge Summary Next Visit Plan Reassessment and potential discharge
--- NOTE | 2021-11-27 11:59 | PT.OTN ---
Current Diagnoses Benign paroxysmal vertigo, bilateral (11/27/21) Physical Therapy Treatment Note PT-OP-A Visit Information Start: 05/07/21 15:36 Freq: Status: Active Protocol: Document 11/27/21 11:15 DCW (Rec: 11/27/21 11:58 DCW [id number]) Out-Patient Physical Therapy Visit Information Visit Information Visit Type Progress Note Visit Start Time 11:15 Visit Stop Time 12:00 Total Visit Minutes 45 Visit Number 17 Number of SUPERVISOR SMOKE CONTROL Visits 0 Evaluation Information Evaluation Date 05/07/21 PT-OP-B Current Condition Start: 05/07/21 15:36 Freq: Status: Active Protocol: Document 05/07/21 12:00 DCW (Rec: 05/07/21 15:58 DCW [id number]) Current Condition History of Current Condition Onset Date 04/25/21 Current Complaints Position-dependent vertigo History of Current Condition Pt is a 61 year old female complaining of a two week history of motion-induced vertigo. Pt reports episodes last a minute or two. Symptoms are provoked by bending down, looking down and to the side, looking up, and changing positions in bed. Pt does repot a few instances when she thinks she was simply standing and got an overwhelming sensation like she was shoved to the side, and ended up falling against the wall. Pt reports symptoms are not waxing/waning in nature. Pt does have a current history of left breast cancer , for which she has recently undergone treatment. Admits to fairly significant stress levels recently, between her cancer treatment, her grandson being born 8 weeks early, and her same grandson undergoing open heart surgery just last week. Prior Treatments and Tests Pt has a history of an as yet undetermined balance disorder which she was seen at this clinic for a number of years ago. Pt was doing well enough that she could function, was having tests run to figure out what was happening, and admits she finally just said that's enough, no one knows what's happening, so I'm just not going to worry about it and live my life. Treatment Goals Patient/Caregiver Goals Stop dizziness/falls Personal Factors Other Personal Factors That May Effect Breast cancer, Hx unknown Therapy/Recovery balance disorder PT-OP-C Subjective Start: 05/07/21 15:36 Freq: Status: Active Protocol: Document 11/27/21 11:15 DCW (Rec: 11/27/21 11:58 DCW [id number]) OP-PT Subjective Patient Comments Patient Comments Pt received her second Covid booster yesterday, really feeling it today. As far as her dizziness goes, she does note she has only had a couple days this past month where she was symptomatic, after sleeping in an uncomfortable hotel bed. PT-OP-F Manual Assessment Start: 06/12/21 12:47 Freq: Status: Active Protocol: Document 11/27/21 11:15 DCW (Rec: 11/27/21 11:58 DCW [id number]) Manual Assessments Soft Tissue Assessment Soft Tissue Mobility Assessment Moderate tone with tenderness to palpation 2/: pain with wincing along upper trap, cervical paraspinals, and scalenes, R>L. PT-OP-O Vestibular Start: 05/07/21 15:36 Freq: Status: Active Protocol: Document 06/12/21 11:15 DCW (Rec: 06/12/21 12:48 DCW [id number]) Vestibular Assessment Positional Testing Loren-Hallpike Positive Left,Negative Right, Upbeating,> 60 Seconds PT-OP-Q Treatments Start: 05/07/21 15:36 Freq: Status: Active Protocol: Document 11/27/21 11:15 DCW (Rec: 11/27/21 11:58 DCW [id number]) Manual Therapy Treatment Soft Tissue Mobilization 1 Body Location B Upper Trap, scalenes, SCM, suboccipitals Mobilization Type Strumming,Sustained Pressure Intensity/Depth Moderate Body Position Supine Manual Traction Cervical Body Position Hooklying Other Other Manual Treatments MWM C3, C5 rotation PT-OP-T Assessment and Plan Start: 05/07/21 15:36 Freq: Status: Active Protocol: Document 11/27/21 11:15 DCW (Rec: 11/27/21 11:58 DCW [id number]) Physical Therapy Assessment Impairments Impairments Balance,Functional Activities, Functional Mobility,Vestibular Goals Two Impairment Moderate R-sided cervical tone restricts ROM Nursing Home Goal (LTG) Pt to improve cervical ROM to normal levels to decrease symptoms of cervicogenic dizziness. LTG Duration 12/12/21 - Improving One Impairment Pt does not have an appropriate home exercise program Short Term Goal (STG) Pt to be independent and compliant with an appropriate HEP STG Duration Met Assessment Summary Assessment Pt doing fairly well today, general soreness secondary to Covid booster. Continues to present with vertebral rotation at C3 and C5, improved with resisted rotation Physical Therapy Plan Frequency and Duration Frequency of Treatment 1x/Month Duration of Treatment 35 days Plan of Care Start Date 10/23/21 Plan of Care End Date 11/27/21 Therapeutic Interventions Therapeutic Interventions Balance Training,Canalithic Repositioning,Manual Therapy, Neuromuscular Re-education, Therapeutic Activities, Therapeutic Exercises, Vestibular Rehabilitation Next Visit Focus/Plan Next Note Type Discharge Summary Next Visit Plan Reassessment and potential discharge
--- NOTE | 2022-06-22 16:56 | PT.OPDS ---
Current Diagnoses Benign paroxysmal vertigo, bilateral (11/27/21) Visit Care Team Role Provider Type Lauren King PA-C Attending Provider Non-Staff Primary Care Provider Referring Provider Specialty: Internal Medicine Address: [address] [place] [address], [id number] Email: Visit Number Visit Number 17 Discharge Summary PT-OP-B Current Condition Start: 05/07/21 15:36 Freq: Status: Active Protocol: Document 05/07/21 12:00 DCW (Rec: 05/07/21 15:58 DCW [id number]) Current Condition History of Current Condition Onset Date 04/25/21 Current Complaints Position-dependent vertigo History of Current Condition Pt is a 61 year old female complaining of a two week history of motion-induced vertigo. Pt reports episodes last a minute or two. Symptoms are provoked by bending down, looking down and to the side, looking up, and changing positions in bed. Pt does repot a few instances when she thinks she was simply standing and got an overwhelming sensation like she was shoved to the side, and ended up falling against the wall. Pt reports symptoms are not waxing/waning in nature. Pt does have a current history of left breast cancer , for which she has recently undergone treatment. Admits to fairly significant stress levels recently, between her cancer treatment, her grandson being born 8 weeks early, and her same grandson undergoing open heart surgery just last week. Prior Treatments and Tests Pt has a history of an as yet undetermined balance disorder which she was seen at this clinic for a number of years ago. Pt was doing well enough that she could function, was having tests run to figure out what was happening, and admits she finally just said that's enough, no one knows what's happening, so I'm just not going to worry about it and live my life. Treatment Goals Patient/Caregiver Goals Stop dizziness/falls Personal Factors Other Personal Factors That May Effect Breast cancer, Hx unknown Therapy/Recovery balance disorder PT-OP-C Subjective Start: 05/07/21 15:36 Freq: Status: Active Protocol: Document 11/27/21 11:15 DCW (Rec: 11/27/21 11:58 DCW [id number]) OP-PT Subjective Patient Comments Patient Comments Pt received her second Covid booster yesterday, really feeling it today. As far as her dizziness goes, she does note she has only had a couple days this past month where she was symptomatic, after sleeping in an uncomfortable hotel bed. PT-OP-F Manual Assessment Start: 06/12/21 12:47 Freq: Status: Active Protocol: Document 11/27/21 11:15 DCW (Rec: 11/27/21 11:58 DCW [id number]) Manual Assessments Soft Tissue Assessment Soft Tissue Mobility Assessment Moderate tone with tenderness to palpation 2/4: pain with wincing along upper trap, cervical paraspinals, and scalenes, R>L. PT-OP-O Vestibular Start: 05/07/21 15:36 Freq: Status: Active Protocol: Document 06/12/21 11:15 DCW (Rec: 06/12/21 12:48 DCW [id number]) Vestibular Assessment Positional Testing [place]-Hallpike Positive Left,Negative Right, Upbeating,> 60 Seconds PT-OP-T Assessment and Plan Start: 05/07/21 15:36 Freq: Status: Active Protocol: Document 06/22/22 16:56 DCW (Rec: 06/22/22 16:56 DCW [id number]) Physical Therapy Assessment Assessment Summary Assessment Pt has now not been seen in more than 6 months, will discharge from skilled therapy at this time. Physical Therapy Plan Discharge Physical Therapy Discharge Reasons No Longer Attending PT
== END 2022-06-24 10:57 | disposition home or self-care (01) ==
LOC: PHYS 11:15
PROVIDERS: PCP Physician Assistant; Referring Provider Physician Assistant; Visit Provider Physician Assistant
DX: H81.13 Benign paroxysmal vertigo, bilateral (principal)
CPT/HCPCS: 95992; 97110; 97140; 97162

== ENCOUNTER 2024-08-09 12:07 | Emergency (ER) | payer MEDICARE, SELFPAY ==
[2024-08-09 12:25] VITALS: BP 216/101; PULSE 110; RESP 22; TEMP 36.7; O2SAT 97; BMI 26.6
--- NOTE | 2024-08-09 14:10 | ED_ITS ---
HPI - Neck Pain/Injury <Halima Mena PA-C - Last Filed: 08/09/24 16:39> General Chief Complaint: Neck Pain/Injury Stated Complaint: constant neck and should px Time Seen by Provider: 08/09/24 14:10 Mode of arrival: Ambulatory History of Present Illness HPI Narrative: Ms. Russell is a pleasant 64-year-old female with a past medical history of cervical stenosis, breast cancer s/p bilateral mastectomy 2020 who presents to the emergency department for neck pain x3 days. 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 When she woke up about 3 days ago she noticed her neck felt very stiff. States pain is going across from the left to right side of her neck. Last night neck became very spastic. She took 500 mg for Bactrim this morning without resolution of symptoms. Denies pain or numbness/tingling going down the arms, weakness of the hands, visual disturbance, chest pain, shortness of breath, flu-like symptoms, fevers, chills. Related Data Home Medications Medication Instructions Recorded Confirmed ALPRAZOLAM 0.5 mg PO PRN ##0 07/16/10 09/13/21 diazepam 2 mg tablet 2 mg PO BID-TID PRN 01/17/19 09/13/21 losartan 50 mg tablet 50 mg PO DAILY 09/13/21 09/13/21 polyethylene glycol 3350 17 17 g PO BID 09/13/21 09/13/21 gram/dose oral powder Previous Rx's Medication Instructions Recorded diclofenac sodium 1 % topical gel 2 g topical QID PRN pain/swelling 09/13/21 (Arthritis Pain (diclofenac)) #100 grams ibuprofen 600 mg tablet 600 mg PO Q8H PRN pain #30 tabs 09/13/21 methocarbamol 500 mg tablet 500 mg PO TID PRN muscle spasm #20 09/13/21 tabs diazepam 2 mg tablet (Valium) 2 mg PO TID PRN muscle spasm #10 08/09/24 tabs Allergies Allergy/AdvReac Type Severity Reaction Status Date / Time lisinopril Allergy Severe COUGH/THROAT Verified 08/09/24 14:45 TIGHTENING bupropion [From Wellbutrin] Allergy Mild physcosis Verified 08/09/24 14:45 episodes hydrocodone [From Vicodin] Allergy Mild Hallucinati Verified 08/09/24 14:45 ng Penicillins Allergy Mild Verified 08/09/24 14:45 Sulfa (Sulfonamide Allergy Mild Verified 08/09/24 14:45 Antibiotics) morphine Allergy Unknown Verified 08/09/24 14:45 tetanus toxoid, adsorbed Allergy Unknown Verified 08/09/24 14:45 adhesive tape AdvReac Severe Hives Verified 08/09/24 14:45 topiramate AdvReac Severe SUICIDAL Verified 08/09/24 14:45 codeine AdvReac Intermediate PSYCHOTIC Verified 08/09/24 14:45 erythromycin base AdvReac Intermediate ABD PAIN, Verified 08/09/24 14:45 DIARRHEA levofloxacin AdvReac Mild Nausea/diar Verified 08/09/24 14:45 jyotsna nadolol AdvReac Mild BRADYCARDIA Verified 08/09/24 14:45 nortriptyline AdvReac Mild TACHYCARDIA Verified 08/09/24 14:45 paroxetine [From Paxil] AdvReac Mild weight gain Verified 08/09/24 14:45 adhesive AdvReac Hives Verified 08/09/24 14:45 Review of Systems <Halima Mena PA-C - Last Filed: 08/09/24 16:39> Review of Systems ROS Unobtainable: All systems reviewed & are unremarkable except as noted in HPI and below Patient History <Halima Mena PA-C - Last Filed: 08/09/24 16:39> Social History Smoking Status: Former smoker Smoking Status: Former smoker Exam <Halima Mena PA-C - Last Filed: 08/09/24 16:39> Narrative Exam Narrative: GENERAL: 64 year old patient appears stated age. Well-developed patient, in no acute distress. Sitting in recliner chair with blanket wrapped around neck for support. HEAD: Atraumatic. Normocephalic. NECK: Trachea midline. Cervical ROM intact to approximately 45? left and right. Tenderness to palpation of left, center, right side of neck no obvious deformities. Range of motion limited due to pain. CARDIOVASCULAR: Regular rate and rhythm. RESPIRATORY: ?Nonlabored respirations. ?Speaking in clear, full sentences. ?Clear to auscultation. Breath sounds equal bilaterally. No wheezes, rales, or rhonchi. ? EXTREMITIES: Full range of motion, strength, sensation intact on bilateral hands. BACK: Nontender without deformity or crepitance. NEURO: AOx3. ?Clear speech. ?Moves all 4 extremities appropriately. SKIN: No rash or erythema of visible areas Initial Vital Signs Initial Vital Signs: Vital Signs Temperature 98.1 F 08/09/24 12:25 Pulse Rate 110 H 08/09/24 12:25 Respiratory Rate 22 08/09/24 12:25 Blood Pressure 216/101 H 08/09/24 12:25 Pulse Oximetry 97 08/09/24 12:25 Oxygen Delivery Method Room Air 08/09/24 12:25 <Megha Goodman MD - Last Filed: 08/10/24 08:35> Initial Vital Signs Initial Vital Signs: Vital Signs Temperature 98.1 F 08/09/24 12:25 Pulse Rate 110 H 08/09/24 12:25 Respiratory Rate 22 08/09/24 12:25 Blood Pressure 216/101 H 08/09/24 12:25 Pulse Oximetry 97 08/09/24 12:25 Oxygen Delivery Method Room Air 08/09/24 12:25 Course <Halima Mena PA-C - Last Filed: 08/09/24 16:39> Orders Ordered: Discontinued Medications Dexamethasone (Dexamethasone 10 Mg/Ml Vial) 10 mg PO NOW ONE Stop: 08/09/24 14:31 Last Admin: 08/09/24 14:50 Dose: 10 mg Documented By: GOLRIA Diazepam (Diazepam 5 Mg Tablet) 5 mg PO NOW ONE Stop: 08/09/24 14:31 Last Admin: 08/09/24 14:51 Dose: 5 mg Documented By: GLORIA Ketorolac Tromethamine (Ketorolac 30 Mg/Ml Vial) 30 mg IM NOW ONE Stop: 08/09/24 14:31 Last Admin: 08/09/24 14:51 Dose: 30 mg Documented By: GLORIA Vital Signs Vital signs: Vital Signs - 8 hr 08/09/24 12:25 08/09/24 15:47 Temperature 98.1 F Pulse Rate 110 H 87 Respiratory Rate 22 20 Blood Pressure 216/101 H 131/67 Pulse Oximetry 97 100 Oxygen Delivery Method Room Air Room Air <Megha Goodman MD - Last Filed: 08/10/24 08:35> Orders Ordered: Discontinued Medications Dexamethasone (Dexamethasone 10 Mg/Ml Vial) 10 mg PO NOW ONE Stop: 08/09/24 14:31 Last Admin: 08/09/24 14:50 Dose: 10 mg Documented By: MPO Diazepam (Diazepam 5 Mg Tablet) 5 mg PO NOW ONE Stop: 08/09/24 14:31 Last Admin: 08/09/24 14:51 Dose: 5 mg Documented By: MPO Ketorolac Tromethamine (Ketorolac 30 Mg/Ml Vial) 30 mg IM NOW ONE Stop: 08/09/24 14:31 Last Admin: 08/09/24 14:51 Dose: 30 mg Documented By: MPO Vital Signs Vital signs: Vital Signs - 8 hr 08/09/24 12:25 08/09/24 15:47 Temperature 98.1 F Pulse Rate 110 H 87 Respiratory Rate 22 20 Blood Pressure 216/101 H 131/67 Pulse Oximetry 97 100 Oxygen Delivery Method Room Air Room Air MDM - Neck Pain/Injury <Halima Mena PA-C - Last Filed: 08/09/24 16:39> Imaging Data CT - cervical spine: Radiologist's Impression: PROCEDURE: CT CERVICAL SPINE WO CON INDICATIONS: severe BL neck pain nontraumatic TECHNIQUE: Noncontrast 3 mm thick sections acquired from the skull base to the T4 level. Sagittal and coronal reformats were then constructed. For radiation dose reduction, the following was used: automated exposure control, adjustment of mA and/or kV according to patient size. COMPARISON: None. FINDINGS: Image quality: Diagnostic Bones: There is straightening of the normal cervical lordosis. Vertebral body heights are well maintained. Mild overall degenerative changes. No traumatic subluxation. Soft tissues: Prevertebral soft tissues within normal limits. No apical pne umothorax. IMPRESSION: No displaced fracture or traumatic subluxation. Mild spondylotic changes. If there is high concern for further derangement, consider MRI evaluation [facility] Narrative Medical decision making narrative: 64-year-old female with a past medical history of cervical stenosis, breast cancer s/p bilateral mastectomy 2019 who presents to the emergency department for neck pain x3 days. Differential diagnosis includes but is not limited to spinal stenosis, cervical radiculopathy, muscle spasm, torticollis, etc. On exam patient is in no acute distress, nontoxic appearing however she does have a blanket wrapped around her neck and limited range of motion due to pain with range of motion of neck. Generalized tenderness to palpation of posterior neck. She is hypertensive and tachycardic in triage however she was crying at that time. Bilateral upper arms neuro intact. No fevers or flu-like symptoms. We will obtain CT cervical spine, treat with Valium, Decadron, Toradol this time. Patient feeling much better after ED treatment. Blood pressure normalized to 131/[address] cervical spine shows no displaced fracture or traumatic subluxation. There is mild spondylitic changes. Mild degenerative changes. I did send the patient a very short course of Valium to her pharmacy to help with cervical muscle spasms. Her range of motion improved after ED treatment. Recommended Tylenol/ibuprofen, warm compresses. Patient verbalized understanding of all information and is agreeable to plan. We discussed risks of Valium. Both her and her verbalized understanding and she is stable for discharge home. Discharge Plan Departure Patient Disposition: Home Clinical Impression: Cervical paraspinal muscle spasm Cervical spine degeneration Qualifiers: Spinal osteoarthritis complication: other spinal osteoarthritis Qualified Code(s): M47.892 - Other spondylosis, cervical region Instructions: DI for Neck Pain Activity Restrictions/Additional Instructions: Today you were evaluated for severe neck pain. The CT scan of your neck did reveal some mild degenerative changes. However your exam is most consistent with cervical muscle spasms. You were treated with steroids, anti-inflammatory pain medicine, and Valium which is a muscle relaxer. I have prescribed you a short course of Valium. This medication can make you drowsy so it is very important to not take it with other benzodiazepines, alcohol, or drive a car. Please take Ibuprofen (Motrin/Advil) or Acetaminophen (Tylenol) for pain. These are available over the counter. You may take Ibuprofen 600 mg every 8 hours with food for pain. You may also take Acetaminophen 650 mg every 4-6 hours for pain. Do not exceed 3000 mg of Tylenol a day as this can cause liver damage. Do not drink alcohol with either of these medications. Please use warm compress to help with muscle spasm. You may follow up with Dr. Glenn Davila, orthopedic spine surgeon with [facility] in [place] for further evaluation of your cervical degenerative disc disease. You can call to schedule an appointment at [phone] You have been prescribed a short course of narcotic medications. These are potentially dangerous and addictive medications that should be used carefully. While on these medications you cannot drive or operate heavy machinery. Additionally, you cannot sign legal documents or perform any duties such as this. Many people get constipated on narcotic medications so it would be advisable to discuss stool softeners with the pharmacist when you picking tech your prescription. Please understand that we cannot provide further refills of narcotics or controlled substances through the ED and your pain management will need to be through your Primary Care Provider Please follow up with your primary care doctor within the next 2-3 days for ER follow-up. (If you do not have a PCP you can call [phone]. ?to schedule an appointment with an [facility] Primary Care Provider) IF YOU DEVELOP ANY NEW OR WORSENING SYMPTOMS, RETURN TO THE ER! Please read the attached instructions, they highlight more specific treatments and interventions for you at home. Thank you for letting me participate in your care, Halima Mena PA-C Prescriptions: New diazepam [Valium] 2 mg tablet 2 mg PO TID PRN (Reason: muscle spasm) Qty: 10 0RF No Action polyethylene glycol 3350 17 gram/dose powder 17 g PO BID losartan 50 mg tablet 50 mg PO DAILY methocarbamol 500 mg tablet 500 mg PO TID PRN (Reason: muscle spasm) Qty: 20 0RF ibuprofen 600 mg tablet 600 mg PO Q8H PRN (Reason: pain) Qty: 30 0RF diclofenac sodium [Arthritis Pain (diclofenac)] 1 % gel 2 g topical QID PRN (Reason: pain/swelling) Qty: 100 0RF Rx Instructions: apply to back of left knee as needed for pain/swelling ALPRAZOLAM 0.5 mg PO PRN Qty: 0 diazepam 2 mg tablet 2 mg PO BID-TID PRN Referrals: Miscellaneous,Doctor, [Primary Care Provider] - Stand Alone Forms: Patient Portal/API/Survey ED Sign-out <Megha Goodman MD - Last Filed: 08/10/24 08:35> Cosign ED Attending Margie Attestation: I was immediately available in the department for consultation throughout this patient's visit. Megha Goodman MD
--- NOTE | 2024-08-09 14:34 | DI.CT.S_ITS ---
PROCEDURE: CT CERVICAL SPINE WO CON INDICATIONS: severe BL neck pain nontraumatic TECHNIQUE: Noncontrast 3 mm thick sections acquired from the skull base to the T4 level. Sagittal and coronal reformats were then constructed. For radiation dose reduction, the following was used: automated exposure control, adjustment of mA and/or kV according to patient size. COMPARISON: None. FINDINGS: Image quality: Diagnostic Bones: There is straightening of the normal cervical lordosis. Vertebral body heights are well maintained. Mild overall degenerative changes. No traumatic subluxation. Soft tissues: Prevertebral soft tissues within normal limits. No apical pneumothorax. IMPRESSION: No displaced fracture or traumatic subluxation. Mild spondylotic changes. If there is high concern for further derangement, consider MRI evaluation. Dictated by: Facundo Estevez M.D. on 08/09/2024 at 14:58 Approved by: Facundo Estevez M.D. on 08/09/2024 at 14:59
[2024-08-09] MEDS: DEXAMETHASONE 10 MG/ML VIAL PO (14:50)
[2024-08-09] MEDS: diazePAM 5 MG TABLET PO (14:51)
[2024-08-09] MEDS: KETOROLAC 30 MG/ML VIAL IM (14:51)
[2024-08-09 15:47] VITALS: BP 131/67; PULSE 87; RESP 20; O2SAT 100
[2024-08-09 16:44] VITALS: BP 133/67; PULSE 80; RESP 20; TEMP 37; O2SAT 100
== END 2024-08-09 16:45 | disposition home or self-care (01) ==
PROVIDERS: Emergency Provider Physician Assistant
DX: M62.830 Muscle spasm of back (principal)
CPT/HCPCS: 72125; 96372; 99283; 99284; J1100; J1885